=== PATIENT | female | born 1945 | race Caucasian/White ===

== ENCOUNTER 2019-09-03 10:30 | Outpatient (RCR) | payer MEDICARE, OTHER, SELFPAY ==
--- NOTE | 2019-08-20 15:58 | OTOPEVAL ---
OCCUPATIONAL THERAPY INITIAL EVALUATION 08/20/2019 Thank you for referring this patient to [facility]. Karmen will benefit from skilled OT 1x/week for 4 weeks. Please review, sign, date and return this plan of care BERTO. I agree with and certify that the following plan of care is medically necessary. Referring Physician Date Referring Provider: Kapil Nieves, MD *OT Outpatient Evaluation Therapy Assessment Status Assessment Status Assessment Status Evaluation Outpatient Past Medical History Neurological History Hx Cerebrovascular Accident (CVA) Yes Cardiovascular History Hx Hypercholesterolemia Yes Hx Hypertension Yes Respiratory History Hx Respiratory Disorders No Significant History Gastrointestinal History Hx Appendectomy Yes Hx Cholecystectomy Yes: SURGICAL CLIPS Genitourinary History Hx Genitourinary Disorders No Significant History Musculoskeletal History Hx Musculoskeletal Disorders No Significant History Hematological History Hx Hematological Disorders No Significant History Endocrine History Hx Diabetes Yes HEENT History Hx Other HEENT Disorders Yes: wear glasses, [place] Integumentary History Hx Skin Disorders No Significant History Reproductive History Hx Hysterectomy Yes Psychosocial History Hx Psychiatric Disorders No Significant History Pain History History of Any Previous or Ongoing No Significant History Instance of Pain Anesthesia History Hx Post-Op Nausea/Vomiting Yes Evaluation Information Problem Diagnosis s/p CVA Additional Evaluation Detail Pt is s/p multiple CVAs. First CVA was 13 years ago, another Jan 2019, and a third Jun 2019. Subjective Information Karmen reports that since her Query Text:As Reported By Patient/ most recent CVA affected the Family base of her brain and she keeps falling . She also states that imaging showed infarcts on both sides of her brain. Prior Level of Function Activity Level (Last 3 Months) Hand Dominance Right Activity of Daily Living Ability Independent Functional Cognition (Planning, Shopping Needs Some Help , Taking Medications) Cooking Yes Cleaning Yes Laundry Yes Driving No Home Setting Home Type House,Single Level Environmental Barriers Railing, Ascend Right,Stairs, 2-4 Living Situation With Spouse Support Available Local Family Support Mobility Assistive Devices (Used
--- NOTE | 2019-08-20 16:42 | PTOPEVAL ---
PHYSICAL THERAPY EVALUATION AND PLAN OF CARE Thank you for referring this patient to [facility]. Karmen will benefit from skilled PT. I recommend working in PT with her 1-2x/week for 4 weeks. Please review, sign, date and return this plan of care BERTO. I agree with and certify that the following plan of care is medically necessary. Referring Physician Date Attending Provider: Kapil Nieves, Evaluation Information Diagnosis CVA, cerebellar Onset 06/2019 Additional Evaluation Detail 146/; Subjective Information Karmen is here today several Query Text:As Reported By Patient/ weeks after a stroke affecting Family cerebellar and occipital region. She reports she gets dizzy at times when performing sit>stand. She states she lists to the right. Karmen has fallen several times - in one instance she was trying to close the door behind her quickly and she got twisted. She requires assistance to stand up. Pain Assessment Timing of Pain Assessment Timing of Pain Assessment Assessment Self Report Self Report Pain Level 0 Pain Score Pain Score 0: Self Report Hip Strength Bilateral Hip Flexion Strength 3+ Fair + Hip Extension Strength 3+ Fair + Hip Abduction Strength 3 Fair Knee Strength Bilateral Knee Flexion Strength 4 Good Knee Extension Strength 4 Good Balance Assessment Dillard Balance Assessment Sitting to Standing Independent w/Hands Unsupported Stance Ability Supervision- 2 minutes Sitting Unsupported, Feet on Floor Safely- 2 minutes Standing to Sitting Safely, Minimal Hand Use Transfer Ability Safely, Hand Use Unsupported Stance- Eyes Closed Supervision, 10 seconds Unsupported Stance- Feet Together Independent, 1 minute Reaching Forward while Standing Supported, Looses Balance 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
--- NOTE | 2019-08-20 16:56 | STOPEVAL ---
SPEECH THERAPY INITIAL EVALUATION: Thank you for referring this patient to [facility]. Overall, the pt. presents with mild communicative impairment. Please review, sign, date and return this plan of care BERTO. I agree with and certify that the following plan of care is medically necessary. Referring Physician Date Admitting Provider: Attending Provider: Kapil NievesMD Jose Referring Provider: ODETTE Outpatient Evaluation Start: 08/20/19 13:59 Freq: Status: Active Protocol: Document 08/20/19 14:01 [email or web address] (Rec: 08/20/19 15:05 BECHERERT [id number]) Therapy Assessment Status Assessment Status Assessment Status Evaluation Outpatient Past Medical History Neurological History Hx Cerebrovascular Accident (CVA) Yes: 3 CVA's Cardiovascular History Hx Hypercholesterolemia Yes Hx Hypertension Yes Hx Other Cardiac Disorders Yes: wearing a loop recorder ? ? how long Respiratory History Hx Respiratory Disorders No Significant History Gastrointestinal History Hx Appendectomy Yes Hx Cholecystectomy Yes: SURGICAL CLIPS Genitourinary History Hx Genitourinary Disorders No Significant History Musculoskeletal History Hx Musculoskeletal Disorders No Significant History Hematological History Hx Hematological Disorders No Significant History Endocrine History Hx Diabetes Yes HEENT History Hx Other HEENT Disorders Yes: wear glasses, [place]; bilateral hearing aids Integumentary History Hx Skin Disorders No Significant History Reproductive History Hx Hysterectomy Yes Psychosocial History Hx Psychiatric Disorders No Significant History Pain History History of Any Previous or Ongoing No Significant History Instance of Pain Anesthesia History Hx Post-Op Nausea/Vomiting Yes Evaluation Information Problem Diagnosis CVA Onset June 24, 2019 Additional Evaluation Detail With this most recent stroke, symptoms started with double vision; reports having had 2 previous strokes. The first was 13 years ago and the second in January,. Reportedly pt has no lasting effects from either. Fell at home about 1 week to 10 days ago. Reports having sore ribs but did not go to the Dr. Pt lives with spouse and 3 dogs and a cat. Enjoys reading. Used to enjoy walking but hasn
--- NOTE | 2019-09-08 09:43 | PCPTNOTE ---
Patient called & cancelled scheduled appointment this date. Does not feel like coming in this week.
--- NOTE | 2019-09-14 09:14 | PCPTNOTE ---
PHYSICAL THERAPY DISCHARGE NOTE Attending Provider: Kapil Nieves, Patient:Karmen Donnelly Date of :1945 Karmen cancelled her remaining appointments due to COVID-19 precautions. Her last attended appointment was on 09/03/2019. Her physical therapy goals have not been assessed. Her current physical therapy account will be discharged. [facility]. Please review, sign, date and return this discharge summary BERTO. I have been updated about the patient's current status and I agree with discharge from the above service at this time. Referring Physician Date
--- NOTE | 2019-09-14 09:40 | PCPTNOTE ---
Patient called & cancelled all scheduled appointment this date due to COVID-19, will reschedule after pandemic.
--- NOTE | 2019-09-16 12:58 | PCSTNOTE ---
SPEECH THERAPY DISCHARGE: Attending Provider: Kapil Nieves, Patient:Karmen Donnelly Date of :1945 Patient has been admitted to [facility] with an apparent diagnosis of CVA; therefore, she will be discharged from therapy at this time. The goals have not been reassessed. Her current outpatient speech therapy account will be discharged. Thank you for referring this patient to [facility]. Please review, sign, date and return this discharge summary BERTO. I have been updated about the patient's current status and I agree with discharge from the above service at this time. Referring Physician Date
--- NOTE | 2019-09-17 14:26 | PCOTNOTE ---
OCCUPATIONAL THERAPY DISCHARGE NOTE 09/17/2019 Attending Provider: Kapil Nieves, Patient:Karmen Donnelly Date of : 1945 Patient has been admitted to [facility] with an apparent diagnosis of CVA; therefore, she will be discharged from therapy at this time. The goals have not been reassessed. Her current outpatient occupational therapy account will be discharged. Thank you for referring this patient to [facility]. Please review, sign, date and return this discharge summary BERTO. I have been updated about the patient's current status and I agree with discharge from the above service at this time. Referring Physician Date
== END 2019-09-14 13:53 | disposition home or self-care (01) ==
LOC: ANHPT 10:30
PROVIDERS: PCP Internal Medicine; Visit Provider Internal Medicine
DX: I69.398 Other sequelae of cerebral infarction (principal); I69.322 Dysarthria following cerebral infarction
CPT/HCPCS: 92507; 92523; 97110; 97162; 97165

== ENCOUNTER 2019-09-15 10:54 | Observation (INO) | payer MEDICARE, OTHER, SELFPAY ==
[2019-09-15] VITALS (11 sets, daily range): BP systolic 147–163; BP diastolic 80–90; PULSE 68–117; RESP 16–20; TEMP 36.7–36.8; O2SAT 84–100; BMI 31.8
--- NOTE | ~2019-09-15 | CT_ITS ---
EXAMINATION: CT brain wo con DATE: 09/15/2019 11:03 INDICATION: Right-sided weakness and facial droop. TECHNIQUE: Computed tomography (CT) of the head was performed without intravenous contrast. Sagittal and coronal reconstructions were performed. The mA was adjusted according to patient size. Iterative reconstruction technique was employed. The dose-length product was 605.33 mGy-cm. COMPARISON: head CT dated 06/25/2019 FINDINGS: No acute intracranial hemorrhage, acute infarction or abnormal extra axial fluid collection. Old lacu janak infarcts in the right thalamus, bilateral basal ganglia and left frontal muller radiata. There is moderate scattered white matter hypoattenuation consistent with chronic small vessel ischemic diseas e. Symmetric prominence of the sulci and ventricles consistent with mild age-appropriate diffuse cere bral volume loss. No mass/mass effect. Mild mucosal thickening the paranasal sinuses. The orbits and mastoid air cells are normal. IMPRESSION: 1. No acute intracranial process. . 2. Old infarcts in the right thalamus, bilateral basal ganglia and left frontal muller radiata. 3. Stable appearance of age-related changes including mild diffuse volume loss and moderate scattered white matter hypoattenuation consistent with chronic small vessel ischemic disease. 4. Per stroke protocol the above findings were discussed with Dr. Coto at 11:05 AM. Reviewed, dictated and finalized at location A. IMPRESSION: 1. No acute intracranial process. . 2. Old infarcts in the right thalamus, bilateral basal ganglia and left frontal umller radiata. 3. Stable appearance of age-related changes including mild diffuse volume loss and moderate scattered white matter hypoattenuation consistent with chronic sma ll vessel ischemic disease. 4. Per stroke protocol the above findings were discussed with Dr. Coto at 11 :05 AM.
--- NOTE | ~2019-09-15 | MR_ITS ---
EXAMINATION: MR brain/brain stem wo/w con DATE: 09/15/2019 16:21 INDICATION: Right hemiparesis. TECHNIQUE: Magnetic resonance imaging (MRI) of the brain and brainstem was performed without and with 14 mL MultiHance intravenous contrast. Sequences included sagittal and axial T1-weighted FSE, axial diffusion-weighted FS EPI, axial T2*-weighted GRE, axial T2-weighted FLAIR Propeller, and axial T2-we ighted Propeller. Postcontrast sequences included axial, sagittal, and coronal T1-weighted FSE. Appar ent diffusion coefficient (ADC) maps were created. COMPARISON: Brain MRI 06/26/2019, 01/26/2019 FINDINGS: There are scattered areas of nonspecific increased T2-weighted signal intensity in the cere bral white matter and tavon. There are old infarcts in the left midbrain, right thalamus, bilateral ba gibran ganglia, left internal capsule, and left frontal lobe muller radiata. There is no intracranial he morrhage, acute infarction, or abnormal intracranial mass lesion. The ventricles are normal in size. The orbits are normal. There is mild mucosal thickening in the paranasal sinuses. The mastoid air melony ls are normal. IMPRESSION: 1. Multiple old infarcts in the brain. 2. Stable moderate nonspecific cerebral white matter disease and pontine disease, which likely repres ents chronic small vessel ischemic disease. Reviewed, dictated and finalized at location A. IMPRESSION: 1. Multiple old infarcts in the brain. 2. Stable moderate nonspecific cerebral white matter disease and pontine diseas e, which likely represents chronic small vessel ischemic disease.
--- NOTE | ~2019-09-15 | XR_ITS ---
EXAMINATION: XR chest 1V 09/15/2019 11:43 INDICATION: Dizziness. CVA. PROCEDURE: AP view of the chest COMPARISON: 06/25/2019 FINDINGS: The lungs are clear. The cardiomediastinal silhouette is within normal limits. There are no pleural effusions. There is no pneumothorax suspected. There are degenerative changes of the wili ulders. IMPRESSION: 1: NO ACUTE CARDIOPULMONARY DISEASE. Reviewed, dictated and finalized at location A.
--- NOTE | ~2019-09-15 | CT_ITS ---
EXAMINATION: CTA BRAIN/CAROTID DATE: 09/15/2019 11:41 INDICATION: Stroke presenting with right-sided hemiparesis, right facial droop and dizziness TECHNIQUE: Computed tomographic angiography (CTA) of the head and neck was performed with 100 mL Omni paque-350 intravenous contrast. Multiplanar reconstructions and maximum intensity projection 3D-recon structions of the carotid arteries and of the intracranial arteries were created by the technologist on a separate workstation. Automated exposure control and iterative reconstruction technique were em ployed.The dose-length product was 961.93 mGy-cm. COMPARISON: Head CT dated 09/15/2019 and brain MR dated 06/26/2019 FINDINGS: Carotid arteries: There is small focus of atherosclerotic plaque with 0 % stenosis of the right carotid bulb relative t o normal distal artery lumen diameter (NASCET criteria). There is 0% stenosis of the left carotid bul b relative to normal distal artery lumen diameter. Visualized aortic arch is normal in caliber with n o dissection. Likely benign 7 mm rim calcified right thyroid nodule. Cervical soft tissues are otherw ise unremarkable. Visualized airway and apices of the lungs are clear. Intracranial arteries Vertebral arteries are codominant. Scattered atherosclerotic plaque without hemodynamically significa nt stenosis at the bilateral carotid siphons. No significant hemodynamic stenosis in the vertebral or basilar arteries. There are no aneurysms identified. Both A1 and P1 segments are patent. Extensive atherosclerotic disease with scattered mild to moderate stenosis at multiple locations along the bila teral anterior, middle and posterior cerebral artery vascular distributions. Peripheral cerebral meena rial arborization appears symmetric. No abnormally enhancing lesions identified. Old lacunar infarcts in the right thalamus, bilateral basal ganglia and left frontal muller radiata. IMPRESSION: 1. Small amount of plaque with 0% stenosis of the right carotid bulb relative to normal distal artery lumen diameter (NASCET criteria). 2. 0% stenosis of the left carotid bulb relative to normal distal artery lumen diameter. 3. Extensive atherosclerotic disease in the intracranial arteries with scattered mild to moderate thierry nosis in the bilateral anterior, middle and posterior cerebral artery vascular distributions but with symmetric peripheral cerebral artery arborization. 4. Small old lacunar infarcts in the right thalamus, bilateral basal ganglia and left frontal muller radiata. Reviewed, dictated and finalized at location A. IMPRESSION: 1. Small amount of plaque with 0% stenosis of the right carotid bulb relative t o normal distal artery lumen diameter (NASCET criteria). 2. 0% stenosis of the left carotid bulb relative to normal distal artery lumen diameter. 3. Extensive atherosclerotic disease in the intracranial arteries with scattere d mild to moderate stenosis in the bilateral anterior, middle and posterior cer ebral artery vascular distributions but with symmetric peripheral cerebral meena ry arborization. 4. Small old lacunar infarcts in the right thalamus, bilateral basal ganglia an d left frontal muller radiata.
--- NOTE | 2019-09-15 10:55 | ECG_ITS ---
Measurements Intervals [place] Rate: 87 P: 52 [place]: 199 QRS: 25 QRSD: 81 T: 87 QT: 364 QTc: 439 Interpretive Statements SINUS RHYTHM NONSPECIFIC ST & T-WAVE ABNORMALITY- LATERAL LEADS BASELINE ARTIFACT- I, II, III, AVR, AVL, AVF, V1-V6 BORDERLINE ECG Electronically Signed On 09-15-2019 12:39:50 CDT by Andrea Madsen D.O.
--- NOTE | 2019-09-15 11:05 | ED.NEUROSD ---
HPI - Neuro Symptoms/Deficit General Chief Complaint: Suspected CVA Stated Complaint: cva Time Seen by Provider: 09/15/19 11:05 Source: patient and family Mode of arrival: ambulatory Limitations: no limitations History of Present Illness HPI Narrative: A 74 y/o female presents to the ED with c/o possible CVA. Per patient's family, the patient has a PMHx of CVA and last had a CVA on 06/25/19. She does not have any residual effects from her previous CVA's. The family notes that today they were going to the grocery store and the patient decided to stay in the car because she was scared of the viral outbreak. The patient's then called his while in the store and she told him that she had trouble answering the phone call and her hand felt funny. The adds that the patient's speech was slurred and she was confused. When the returned to the car, he noticed she had right sided facial droop, so he decided to bring her to the ED. The patient was fine prior to the going into the store today at 1030. She takes Plavix and Asprin daily and last took her prescriptions this morning. Onset (ago): minute(s) (30) Last Observed Normal: 10:30 Timing confirmed by: spouse Location: speech and right face History of same: Yes Severity: similar to previous episodes On Anticoagulants: Yes Associated symptoms: confusion and other (slurred speech, right facial droop, hand feels funny ) Related Data Home Medications Medication Instructions Recorded Confirmed Januvia 50 mg PO DAILY 06/25/19 06/25/19 amlodipine 10 mg PO DAILY 06/25/19 06/25/19 aspirin 81 mg PO DAILY 06/25/19 06/25/19 clopidogrel 75 mg PO DAILY 06/25/19 06/25/19 glipizide 5 mg PO DAILY 06/25/19 06/25/19 losartan 100 mg PO DAILY 06/25/19 06/25/19 rosuvastatin 10 mg PO DAILY 06/25/19 06/25/19 Allergies Allergy/AdvReac Type Severity Reaction Status Date / Time metformin AdvReac Severe DIARRHEA Verified 09/15/19 11:14 Review of Systems Review of Systems: All systems reviewed & are unremarkable except as noted in HPI and below Musculoskeletal: Musculoskeletal: Reports other (hand feels funny ) Neurologic: Reports confusion and Reports other (slurred speech, right facial droop) [facility] Past Medical History Medical History (Updated 09/15/19 @ 14:05 by Amarjit Coto DO) Acute CVA (cerebrovascular accident) CVA (cerebral vascular accident) DM2 (diabetes mellitus, type 2) Dyslipidemia Hypertension Left basal ganglia embolic stroke Right thalamic stroke Sinus headache Surgical History Surgical History H/O cervical spine surgery Nerve release History of appendectomy History of hysterectomy including cervix Hx of cholecystectomy Family History Family History Father Diabetes mellitus Acute myocardial infarction Cerebrovascular accident Hypertension Mother of unknown cause History of blood clots Social History Social History Smoking status: Never smoker Alcohol intake: never Substance use: never Gender identity (if verbalized by the patient): Female Spiritual care concerns: No Agree to blood products: Yes Exam Narrative: Exam Narrative: APPEARANCE: No acute distress, nontoxic, resting in bed HEENT: Normocephalic, atraumatic, OMM, TMs clear bilaterally EYES: PERRL, EOMI NECK: Supple, nontender, full range of motion without pain, no meningismus RESPIRATORY: No respiratory distress, clear to auscultation bilaterally with no rhonchi wheezing or rales CARDIOVASCULAR: RRR s murmur ABDOMINAL: Soft, nontender, nondistended MUSCULOSKELETAL: Moves all extremities. No clubbing, cyanosis or edema. NEURO: A and O ?1, speech slurred with mild aphasia, muscle strength 4 out of 5 in the right upper extremity 5 out of 5 in the right lower extremity and 5 out of 5 in the left upper and lower e
[2019-09-15 11:22] LABS: Basophils Percent Auto 0.5 % (0.2-1.2); Eosinophils Absolute Auto 0.2 K/mm3 (0-0.3); Eosinophils Percent Auto 2.6 % (0-4.4); Hematocrit 42.7 % (37.0-47.0); Hemoglobin 14.1 g/dL (12.0-15.0); Immature Granulocyte Absolute 0.02 K/mm3 (0.00-0.031); Immature Granulocyte Percent A 0.3 % (0-0.5); Lymphocytes Absolute Auto 1.88 K/mm3 (0.9-3.2); Lymphocytes Percent Auto 23.7 % (18.3-44.2); Mean Corpuscular Hemoglobin 29.4 pg (26-34); Mean Platelet Volume 10.9 fl (7.4-10.4); Monocytes Absolute Auto 0.7 K/mm3 (0.1-0.6); Monocytes Percent Auto 9.3 % (2.6-8.5); Neutrophils Percent Auto 63.6 % (45.5-73.1); Platelet Count Result 218 k/mm3 (150-375); Red Cell Distribution Width 12.3 % (11.5-14.5); White Blood Count 7.9 K/mm3 (4.5-10.0)
[2019-09-15 11:33] LABS: INR 0.9; Partial Thromboplastin Time 22.4 SECONDS (22.3-36.8); Prothrombin Time 11.3 Seconds (11.1-14.7)
[2019-09-15 11:57] LABS: Glucose Point of Care 121 (65-105)
[2019-09-15 12:13] LABS: Blood Urea Nitrogen 22 mg/dL (7-17); Calcium 8.9 mg/dL (8.4-10.2); Carbon Dioxide 29 mmol/L (22-30); Chloride 101 mmol/L (98-107); Estimated CRCL calculation 39 ml/min; Estimated Glomerular Filt Rate 54; Glucose 129 mg/dL (65-105); Potassium 4.4 mmol/L (3.4-5.0); Sodium 136 mmol/L (137-145)
[2019-09-15 12:25] LABS: Troponin I < 0.012 ng/mL (0.000-0.034)
--- NOTE | 2019-09-15 14:00 | PM.IMHP ---
H&P: HPI History of Present Illness Chief complaint: Right-sided weakness and slurred speech. Narrative: Karmen Donnelly is a 74-year-old female with history of stroke, type 2 diabetes mellitus, and hypertension who presented to the emergency department earlier today for evaluation of right-sided weakness and slurred speech. She has a history of several strokes, more recently suffering from an acute infarct in the left mid brain June 26, 2019. Echocardiogram and carotid Doppler ultrasounds were unrevealing, and it was thought that perhaps she was having silent paroxysmal atrial fibrillation and a loop recorder was placed per Dr. Drew on June 30. She denied have any significant residual deficits from that stroke. Today, she began complaining of right-sided weakness and notes slurred speech. At the time my evaluation, her speech is intermittently garbled and she is having difficulties verbalizing what she wants to say. I am not certain if she is confused or is simply suffering from expressive aphasia, as she cannot really explain to me what she is feeling nor can she answer orientation questions appropriately. Currently, visitors are not allowed the hospital and have been unable to get a hold of her via phone for additional information, unfortunately. When when asked direct questions, she is able to nod and/or shake her head. She does indicate that she had some slight right-sided facial droop but denies to me having right-sided weakness. She states compliance with her home medications. She denies vertigo, diplopia, current focal weakness or paresthesias. She has not experienced fluttering or racing heart. Review of Systems Review of Systems: Narrative: Twelve systems were reviewed with pertinent positives and negatives as per HPI. The accuracy of this review of systems is questionable, given the patient's expressive and possible receptive aphasia. Except as documented, all other systems were reviewed and are negative. [facility] Past Medical History Medical History (Updated 09/15/19 @ 16:33 by Joann Mccarthy PA-C) CVA (cerebral vascular accident) : Brain MRI June 2019 showed acute infarct in the left midbrain and old infarcts involving the right thalamus, bilateral basal ganglia, and left frontal lobe muller radiata as well as unchanged moderate nonspecific cerebral white matter disease and pontine disease, which likely represents chronic small vessel ischemic disease. : Carotid Doppler ultrasounds showed < 50% stenosis bilaterally. : Echocardiogram in January 2018 showed normal left ventricular systolic function with an EF of 65-70%. There was no evidence of intracardiac shunt at the atrial level with bubble study. Dyslipidemia Hypertension Type 2 diabetes mellitus :Hemoglobin A1c was 8.3% in January 2019. Surgical History Surgical History (Updated 09/15/19 @ 16:18 by Joann Mccarthy PA-C) History of appendectomy History of cervical spinal surgery History of cholecystectomy History of hysterectomy Family History Family History Father Diabetes mellitus Acute myocardial infarction Cerebrovascular accident Hypertension Mother of unknown cause History of blood clots Social History Social History (Updated 09/15/19 @ 16:24 by Joann Mccarthy PA-C) Social History: The patient lives in [place] with her . Her , Michael, as her surrogate decision maker and she is listed as a full code. She is a lifelong nonsmoker. No alcohol or drug abuse documented. Spiritual care concerns: No Agree to blood products: Yes Meds Home Medications and Allergies Home Medications Medication Instructions Recorded Confirmed Type Januvia 50 mg PO DAILY 06/25/19 09/15/19 History amlodipine 10 mg PO DAILY 06/25/19 09/15/19 History aspirin 81 mg PO DAILY 06/25/19 09/15/19 History clopidogrel 75 mg PO DAILY 06/25/19
--- NOTE | 2019-09-15 14:17 | ADMGEN ---
This patient, Karmen Donnelly, was admitted to [facility] Room 319-01. Patient/family oriented to hospital policies and general routines including ID bracelet, bed and alarms, visiting hours, pain management, procedures, bathroom and other care routines, personal items, smoking policy, room service/diet, and visiting hours. Valuables list has been completed. Information on how to activate the Rapid Response Team has been discussed. Patient/Family are encouraged to report perceived risks to care and to ask questions if they do not understand what they are told or what they should do.
[2019-09-15] MEDS: INSULIN ASPART (*BKC) 100 UNITS/ML SUB-Q (17:05)
[2019-09-15 17:15] LABS: Glucose Point of Care 233 (65-105)
[2019-09-15 21:38] LABS: Glucose Point of Care 176 (65-105)
[2019-09-16] VITALS: PULSE 94
[2019-09-16 04:00] VITALS: PULSE 115
[2019-09-16 06:00] VITALS: BP 150/80; PULSE 87; RESP 18; TEMP 36.6; O2SAT 97
[2019-09-16 06:20] LABS: Basophils Percent Auto 0.2 % (0.2-1.2); Eosinophils Percent Auto 0.4 % (0-4.4); Hematocrit 39.7 % (37.0-47.0); Hemoglobin 13.2 g/dL (12.0-15.0); Immature Granulocyte Absolute 0.04 K/mm3 (0.00-0.031); Immature Granulocyte Percent A 0.5 % (0-0.5); Lymphocytes Percent Auto 16.7 % (18.3-44.2); Mean Corpuscular HGB Conc 33.2 g/dl (32-36); Mean Corpuscular Hemoglobin 29.3 pg (26-34); Mean Platelet Volume 10.3 fl (7.4-10.4); Monocytes Absolute Auto 0.7 K/mm3 (0.1-0.6); Monocytes Percent Auto 8.5 % (2.6-8.5); Neutrophils Absolute Auto 6.2 K/mm3 (1.3-6.7); Neutrophils Percent Auto 73.7 % (45.5-73.1); Platelet Count Result 234 k/mm3 (150-375); Red Blood Count 4.51 M/mm3 (4.2-5.4); White Blood Count 8.4 K/mm3 (4.5-10.0)
[2019-09-16 06:36] LABS: Blood Urea Nitrogen 19 mg/dL (7-17); Carbon Dioxide 30 mmol/L (22-30); Chloride 101 mmol/L (98-107); Estimated CRCL calculation 48 ml/min; Estimated Glomerular Filt Rate > 60; Glucose 131 mg/dL (65-105); Potassium 4.3 mmol/L (3.4-5.0); Sodium 134 mmol/L (137-145)
[2019-09-16 06:44] LABS: Alanine Aminotransferase 15 U/L (4-35); Albumin Level 3.6 g/dL (3.5-5.1); Alkaline Phosphatase 70 U/L (38-126); Aspartate Amino Transferase 21 U/L (14-36); Bilirubin,Total 0.7 mg/dL (0.2-1.3)
[2019-09-16 08:00] VITALS: PULSE 87; PULSE 92; RESP 18; O2SAT 97
[2019-09-16] MEDS: LOSARTAN POTASSIUM 100 MG TABLET PO (08:30)
[2019-09-16] MEDS: AMLODIPINE BESYLATE 5 MG TABLET 10 MG PO (08:30)
[2019-09-16 08:32] LABS: Glucose Point of Care 108 (65-105)
[2019-09-16] MEDS: ESCITALOPRAM OXALATE 5 MG TABLET PO (08:34)
[2019-09-16] MEDS: ASPIRIN 81 MG ENTERIC TABLET PO (08:34)
[2019-09-16] MEDS: ROSUVASTATIN 10 MG TABLET PO (08:35)
[2019-09-16] MEDS: glipiZIDE XL 5 MG TABCR PO (08:35)
[2019-09-16] MEDS: CLOPIDOGREL BISULFATE 75 MG TABLET PO (08:35)
--- NOTE | 2019-09-16 09:43 | PCSTNOTE ---
Please refer to the Bedside Swallow Evaluation in the EMR.
[2019-09-16] MEDS: ONDANSETRON INJ 4 MG/2 ML VIAL IV PUSH (10:02)
--- NOTE | 2019-09-16 11:18 | CONS_ITS ---
DATE OF CONSULTATION: 09/15/2019 HISTORY OF PRESENT ILLNESS: This 74-year-old right-handed female has been admitted to [facility] through the emergency room for the complaints of right-sided weakness with dysarthria. In addition, the history of underlyin. Previous stroke. 2. Type 2 diabetes mellitus. 3. Hypertension. 4. Dyslipidemia. As per the information available, the patient has had several stroke, more recently suffering from an acute infarct in the left mid brain on 06/26/2019. At that time, echocardiogram and carotid studies were unrevealing. It was attributed to her strokes, silent paroxysmal atrial fibrillation, and a loop recorder was placed as per Dr. Drew on 06/30/2019. She had no residual effect from the stroke, but started complaining of right-sided weakness and noted to have slurred speech by the on the day of admission today. By the time, she was seen by the hospitalist, her speech was garbled and she was having difficulty verbalizing. She was able to nod or shake her head. She was noted to have slight right-sided facial droop and right-sided weakness. As mentioned above, she has had the stroke in the past in June of 2019 with documentation of acute infarct in the left midbrain and old infarct in the right thalamus, bilateral basal ganglia, left frontal lobe muller radiata and no significant white matter disease. Carotid study at the time were less than 50% stenosis bilaterally. Echocardiogram was consistent with normal left ventricle systolic function with ejection fraction of 65% to 70%, but there was no evidence of intracardiac shunting at the level of the atrium with a bubble study. PAST MEDICAL HISTORY: Obviously, she had the dyslipidemia, hypertension, type 2 diabetes mellitus, and her hemoglobin A1c was 8.3 in January of 2019. PAST SURGICAL HISTORY: In the past, the patient has gone appendectomy, cervical spine surgery, cholecystectomy, hysterectomy. MEDICATIONS: At the time of admission, this time she was takin. Januvia 50 mg daily. 2. Amlodipine 10 mg daily. 3. Aspirin 81 mg daily. 4. Clopidogrel 75 mg daily. 5. Glipizide 5 mg daily. 6. Losartan 100 mg daily. 7. Rosuvastatin 10 mg daily. 8. Escitalopram 5 mg daily. 9. She is off the metformin because of the adverse reaction. PHYSICAL EXAMINATION: VITAL SIGNS: Evaluation at this time revealed her to be afebrile with pulse of 89, respirations 16, blood pressure 156/81 with pulse ox 100%, respirations 16, blood pressure 147/87 repeat. GENERAL: Examination revealed her to be awake, alert, cooperative, in no obvious acute distress. HEENT: Head normocephalic with no cranial bruit. Ear, nose, throat examination normal. NECK: Supple with no cervical bruit. No thyromegaly. No lymphadenopathy. HEART: Regular with no murmur. LUNGS: Clear to auscultation. ABDOMEN: Soft with no organomegaly. NEUROLOGICAL: She is awake, alert, has difficulties of providing all the information though she try to follow as much as possible. She was noted to have drift of the right upper extremity, but otherwise deep tendon reflexes were either symmetrical and plantar response was upgoing. LABORATORY DATA: Evaluation up until now included a normal CBC with WBC 7.9, hemoglobin 14.1, platelet count 218. Basic metabolic panel normal, except a glucose of 129. Troponin less than 0.012. CT of the head documented the old infarct in the right thalamus, both basal ganglia and left frontal muller radiata with mild diffuse volume loss. Scattered white matter disease. Chest x-ray was negative. Head and neck CTA was done, which revealed 0% stenosis of the right carotid bulb, 0% of the left carotid bulb. Extensive atherosclerotic disease in the intracranial arteries with [id number] stenosis o
--- NOTE | 2019-09-16 11:58 | PM.IMPN ---
Progress Note: A&P Assessment and Plan (1) Acute CVA (cerebrovascular accident): Code(s): I63.9 - Cerebral infarction, unspecified Status: Acute Assessment and Plan: Despite being on both aspirin and Plavix since stroke in June, it appears she has had yet another stroke. Loop recorder placed in June to evaluate possible silent paroxysmal atrial fibrillation, which will be interrogated. May be beneficial to start anticoagulation given repeated strokes. 09/16/19 11:58 Patient is 74-year-old female with previous history of stroke as well as TIA and silent atrial fibrillation had been seen by station cashier and loop recorder was placed in June 2019, patient was clinically stable until yesterday afternoon while she was with her and developed slurred speech confused and difficulty with upper extremities, patient was brought to the emergency department for further evaluation patient had MRI of the brain showed multiple old infarcts there is no acute injury, her symptoms have resolved this morning she has a fluent speech and denies any upper or lower extremity weakness, there is a concern the patient has a silent atrial fibrillation patient was seen by station cashier and the loop recorder was placed which may need interrogation for further evaluation, currently patient is on Plavix and aspirin patient is seen by neurologist recommending the patient may need anticoagulation once patient is seen by station cashier and had loop recorder nterrogated. Will have PT OT evaluate the patient (2) Type 2 diabetes mellitus: Code(s): E11.9 - Type 2 diabetes mellitus without complications Status: Acute Assessment and Plan: Hemoglobin A1c was 8.3% in January 2019. Continue glipizide and Januvia. Initiate sliding scale insulin, Accu-Cheks, and hypoglycemic protocol. (3) Hypertension: Code(s): I10 - Essential (primary) hypertension Status: Chronic Assessment and Plan: Blood pressures were reviewed and they are not at goal, with have 163/90 in the emergency department. Will continue antihypertensives and monitor closely. (4) Dyslipidemia: Code(s): E78.5 - Hyperlipidemia, unspecified Status: Chronic Assessment and Plan: Continue statin. Time Spent With Patient Time with patient: 15 - 25 minutes Subjective Date/time seen: 09/16/19 11:58 Patient is 74-year-old female with previous history of stroke as well as TIA and silent atrial fibrillation had been seen by station cashier and loop recorder was placed in June 2019, patient was clinically stable until yesterday afternoon while she was with her and developed slurred speech confused and difficulty with upper extremities, patient was brought to the emergency department for further evaluation patient had MRI of the brain showed multiple old infarcts there is no acute injury, her symptoms have resolved this morning she has a fluent speech and denies any upper or lower extremity weakness, there is a concern the patient has a silent atrial fibrillation patient was seen by station cashier and the loop recorder was placed which may need interrogation for further evaluation, currently patient is on Plavix and aspirin patient is seen by neurologist recommending the patient may need anticoagulation once patient is seen by station cashier and had loop recorder nterrogated. Will have PT OT evaluate the patient Review of Systems Review of Systems: All systems reviewed & are unremarkable except as noted in HPI and below Exam Const: General: comfortable and no acute distress HENMT: General nose exam: Normal nares present Mouth: Yes moist mucous membranes Eyes: General: appearance normal, both eyes and all related structures Sclera: sclerae normal Neck: Neck: supple Resp: Effort & Inspection: normal respiratory effort Auscultation: clear to auscultation bilaterally Cardio: Rate: regular rate Rhythm: regular
[2019-09-16 12:00] VITALS: PULSE 85
[2019-09-16 12:30] LABS: Glucose Point of Care 177 (65-105)
[2019-09-16 14:00] VITALS: BP 140/73; PULSE 95; RESP 18; TEMP 37.1; O2SAT 95
--- NOTE | 2019-09-16 14:27 | PCSTNOTE ---
The patient treatment was not able to be completed on 09/16/19 due to patient refusal this afternoon due to not feeling well. Will plan to continue treatment per plan of care for Communication Evaluation
--- NOTE | 2019-09-16 14:50 | PM.DS ---
DS: Diagnosis Admitting Diagnosis Admitting Diagnosis: Cerebral infarction, unspecified Discharge Diagnosis (1) Acute CVA (cerebrovascular accident): Code(s): I63.9 - Cerebral infarction, unspecified Status: Acute Assessment and Plan: Despite being on both aspirin and Plavix since stroke in June, it appears she has had yet another stroke. Loop recorder placed in June to evaluate possible silent paroxysmal atrial fibrillation, which will be interrogated. May be beneficial to start anticoagulation given repeated strokes. 09/16/19 11:58 Patient is 74-year-old female with previous history of stroke as well as TIA and silent atrial fibrillation had been seen by banking services clerk and loop recorder was placed in June 2019, patient was clinically stable until yesterday afternoon while she was with her and developed slurred speech confused and difficulty with upper extremities, patient was brought to the emergency department for further evaluation patient had MRI of the brain showed multiple old infarcts there is no acute injury, her symptoms have resolved this morning she has a fluent speech and denies any upper or lower extremity weakness, there is a concern the patient has a silent atrial fibrillation patient was seen by banking services clerk and the loop recorder was placed which may need interrogation for further evaluation, currently patient is on Plavix and aspirin patient is seen by neurologist recommending the patient may need anticoagulation once patient is seen by banking services clerk and had loop recorder nterrogated. Will have PT OT evaluate the patient (2) Type 2 diabetes mellitus: Code(s): E11.9 - Type 2 diabetes mellitus without complications Status: Acute Assessment and Plan: Hemoglobin A1c was 8.3% in January 2019. Continue glipizide and Januvia. Initiate sliding scale insulin, Accu-Cheks, and hypoglycemic protocol. (3) Hypertension: Code(s): I10 - Essential (primary) hypertension Status: Chronic Assessment and Plan: Blood pressures were reviewed and they are not at goal, with have 163/90 in the emergency department. Will continue antihypertensives and monitor closely. (4) Dyslipidemia: Code(s): E78.5 - Hyperlipidemia, unspecified Status: Chronic Assessment and Plan: Continue statin. DS: Summary Hospital Course Reason for hospitalization: Chief complaint: Right-sided weakness and slurred speech. Narrative: Karmen Donnelly is a 74-year-old female with history of stroke, type 2 diabetes mellitus, and hypertension who presented to the emergency department earlier today for evaluation of right-sided weakness and slurred speech. She has a history of several strokes, more recently suffering from an acute infarct in the left mid brain June 26, 2019. Echocardiogram and carotid Doppler ultrasounds were unrevealing, and it was thought that perhaps she was having silent paroxysmal atrial fibrillation and a loop recorder was placed per Dr. Drew on June 30. She denied have any significant residual deficits from that stroke. Today, she began complaining of right-sided weakness and notes slurred speech. At the time my evaluation, her speech is intermittently garbled and she is having difficulties verbalizing what she wants to say. I am not certain if she is confused or is simply suffering from expressive aphasia, as she cannot really explain to me what she is feeling nor can she answer orientation questions appropriately. Currently, visitors are not allowed the hospital and have been unable to get a hold of her via phone for additional information, unfortunately. When when asked direct questions, she is able to nod and/or shake her head. She does indicate that she had some slight right-sided facial droop but denies to me having right-sided weakness. She states compliance with her home medications. She denies vertigo, diplopia,
[2019-09-16 16:46] LABS: Glucose Point of Care 173 (65-105)
== END 2019-09-16 17:50 | disposition home or self-care (01) ==
LOC: ANHED 13:32 → ANH3MEDSUR 14:05
PROVIDERS: Physician Assistant; Admitting Provider Internal Medicine; Emergency Provider Emergency Medicine; PCP Internal Medicine; Visit Provider Family Medicine
DX: I63.9 Cerebral infarction, unspecified (principal); G83.21 Monoplegia of upper limb affecting right dominant side; R47.81 Slurred speech; E11.9 Type 2 diabetes mellitus without complications; I10 Essential (primary) hypertension; E78.5 Hyperlipidemia, unspecified; Z79.02 Long term (current) use of antithrombotics/antiplatelets; Z79.82 Long term (current) use of aspirin; Z79.899 Other long term (current) drug therapy; Z86.73 Personal history of transient ischemic attack (TIA), and cerebral infarction without residual deficits
CPT/HCPCS: 36415; 70450; 70496; 70498; 70553; 71045; 80048; 80076; 82948; 84484; 85025; 85610; 85730; 92610; 93005; 96374; 97161; 97165; 99285; A9270; A9577; G0378; J1815; J2405; Q9967

== ENCOUNTER 2022-11-29 12:25 | Inpatient (IN) | payer MEDICARE, OTHER, SELFPAY ==
[2022-11-29] VITALS (8 sets, daily range): BP systolic 144–160; BP diastolic 73–101; PULSE 97–135; RESP 19–22; TEMP 36.1–37.4; O2SAT 96–99; BMI 30.1
--- NOTE | ~2022-11-29 | XR_ITS ---
XR chest 1V portable DATE: 11/29/2022 15:29 INDICATION: Fall. Nausea and vomiting. TECHNIQUE: Portable upright AP chest on 11/29/2022 at 1518 hours COMPARISON: 09/11/2019 AP chest FINDINGS: last ironer device overlies the medial left lower chest/upper abdomen. Heart size appears within normal range. Is aortic calcification. No hilar or mediastinal enlargement. There is mild to moderate elevation of the left leaf of the diaphragm. Minimal atelectasis is suggest ed at the left lung base. The lungs otherwise appear clear. No pleural effusion or pulmonary vascular congestion or pneumothorax is evident. Osteopenia. Status post lower anterior cervical spine surgical fusion. IMPRESSION: Moderate moderate elevation left leaf of diaphragm and minimal atelectasis at left lung b ase Reviewed, dictated and finalized at location L. IMPRESSION: Moderate moderate elevation left leaf of diaphragm and minimal atel ectasis at left lung base
--- NOTE | ~2022-11-29 | XR_ITS ---
XR finger 2nd RT min 2V DATE: 11/29/2022 15:28 INDICATION: Fall. Second digit pain at proximal interphalangeal joint TECHNIQUE: 3 views COMPARISON: None FINDINGS: Possible dorsal soft tissue laceration with suggestion of minimal subcutaneous emphysema of the dorsal soft tissues near the proximal interphalangeal joint. There is osteoarthritic change at the proximal and distal interphalangeal joints of the second digit. Osteophytic changes also noted at the first carpometacarpal joint. Osteopenia No fracture or dislocation, periosteal reaction or bone destruction of the second digit is evident. IMPRESSION: Osteopenia Polyarticular osteoarthritis Suggestion of a small laceration and possible subtle minimal subcutaneous emphysema of the dorsum of the second digit over the proximal interphalangeal area; no radiopaque foreign body Reviewed, dictated and finalized at location L. IMPRESSION: Osteopenia Polyarticular osteoarthritis Suggestion of a small laceration and possible subtle minimal subcutaneous emphy sema of the dorsum of the second digit over the proximal interphalangeal area; no radiopaque foreign body
--- NOTE | ~2022-11-29 | CT_ITS ---
Noncontrast CT scan of the cervical spine Technique: Multiple contiguous axial [address] images of the cervical spine were obtained and rec onstructed in 2D sagittal and coronal planes on the acquisition scanner. Dose reduction technique was used on this scan by utilizing automated exposure control, adjustment of the mA and/or kV according to patient size. Clinical History: Pain Findings: No fractures or dislocations. There is anterior fusion across the C5-C6 disc space. There is advanced degenerative disc narrowing at C6-C7. Remaining disc spaces are preserved. There is uncov ertebral degenerative change at C6-C7. There is probable right neural foraminal narrowing at C4-C5 wi th right facet arthropathy. Probable minimal bilateral neural foraminal narrowing at C5-C6 and C6-C7. No prevertebral soft tissue swelling. Impression: No fracture or subluxation of the cervical spine. Anterior fusion from C5 to C6. Degenerative changes, as above. Reviewed, dictated and finalized at [facility]. Impression: No fracture or subluxation of the cervical spine. Anterior fusion from C5 to C6. Degenerative changes, as above.
--- NOTE | ~2022-11-29 | CT_ITS ---
CT head without contrast Indication: COMPARISON: 09/15/2019 Technique: Serial scans were obtained through the brain without the administration of contrast. Dose reduction technique was used on this scan by utilizing automated exposure control and iterative recon struction technique. The dose-length product (DLP) was 605.33 mGy-cm. Findings: There is no evidence of intracranial hemorrhage, mass lesion, or acute infarct. The ventri cles and subarachnoid spaces are dilated, consistent with moderate atrophy. Low attenuation regions are seen within the periventricular white matter bilaterally, likely representing changes from chroni c microvascular ischemic disease. There is no evidence of edema, mass effect or midline shift. The visualized paranasal sinuses and mastoid air cells are clear. Impression: No intracranial hemorrhage, mass, or acute infarct. Atrophy and chronic white matter changes, as above. Reviewed, dictated and finalized at location . Impression: No intracranial hemorrhage, mass, or acute infarct. Atrophy and chronic white matter changes, as above.
--- NOTE | 2022-11-29 12:53 | PC.NURSE ---
C collar applied per spouse report of falling and htiting head. Pt does not endorse neck pain.
[2022-11-29 13:33] LABS: Basophils Percent Auto 0.3 % (0.2-1.2); Eosinophils Absolute Auto 0.1 K/mm3 (0-0.3); Eosinophils Percent Auto 1.8 % (0-4.4); Hematocrit 41.7 % (37.0-47.0); Hemoglobin 14.1 g/dL (12.0-15.0); Immature Granulocyte Absolute 0.07 K/mm3 (0.00-0.031); Immature Granulocyte Percent A 0.9 % (0-0.5); Lymphocytes Absolute Auto 1.34 K/mm3 (0.9-3.2); Lymphocytes Percent Auto 17.1 % (18.3-44.2); Mean Corpuscular HGB Conc 33.8 g/dl (32-36); Mean Corpuscular Hemoglobin 30.9 pg (26-34); Mean Corpuscular Volume 91.4 fl (80-100); Mean Platelet Volume 10.2 fl (7.4-10.4); Monocytes Absolute Auto 0.7 K/mm3 (0.1-0.6); Monocytes Percent Auto 8.8 % (2.6-8.5); Neutrophils Absolute Auto 5.6 K/mm3 (1.3-6.7); Neutrophils Percent Auto 71.1 % (45.5-73.1); Platelet Count Result 219 k/mm3 (150-375); Red Blood Count 4.56 M/mm3 (4.2-5.4); Red Cell Distribution Width 13.2 % (11.5-14.5); White Blood Count 7.8 K/mm3 (4.5-10.0)
[2022-11-29 13:49] LABS: Alanine Aminotransferase 38 U/L (6-35); Albumin Level 4.1 g/dL (3.5-5.1); Alkaline Phosphatase 65 U/L (38-126); Anion Gap 4 mmol/L (8-16); Aspartate Amino Transferase 34 U/L (14-36); Bilirubin,Total 0.5 mg/dL (0.2-1.3); Blood Urea Nitrogen 17 mg/dL (7-17); Calcium 8.6 mg/dL (8.4-10.2); Carbon Dioxide 31 mmol/L (22-30); Chloride 102 mmol/L (98-107); Estimated CRCL calculation 51 ml/min; Estimated Glomerular Filt Rate > 60; Glucose 123 mg/dL (65-110); Potassium 3.8 mmol/L (3.4-5.0); Sodium 137 mmol/L (137-145)
[2022-11-29 13:50] LABS: INR 0.8; Prothrombin Time 11.8 Seconds (11.1-14.7)
--- NOTE | 2022-11-29 13:57 | ED.FALL ---
HPI - Fall General Chief Complaint: Fall Stated Complaint: FALL/ HEADACHE Time Seen by Provider: 11/29/22 13:02 Source: patient History of Present Illness HPI Narrative: 77 years old white female came from home by ambulance because of a fall. Patient missed stepped going up to the garage and fell backward. was infront of her at that time and heard a thud, found her laying down on the ground awake, denying symptoms. Patient have history of dementia and usually uses a cane during walking.. Patient does not know exactly what happened she keeps telling me as my Related Data Home Medications Medication Instructions Recorded Confirmed amlodipine 10 mg tablet 10 mg PO DAILY 06/25/19 09/15/19 aspirin 81 mg tablet,delayed 81 mg PO DAILY 06/25/19 09/15/19 release clopidogrel 75 mg tablet 75 mg PO DAILY 06/25/19 09/15/19 glipizide 5 mg tablet, extended 1 mg PO DAILY 06/25/19 09/15/19 release 24 hr losartan 100 mg tablet 30 mg PO DAILY 06/25/19 09/15/19 rosuvastatin 10 mg tablet 20 mg PO DAILY 06/25/19 09/15/19 sitagliptin phosphate 50 mg tablet 50 mg PO DAILY 06/25/19 09/15/19 (Januvia) escitalopram oxalate 5 mg tablet 5 mg PO DAILY 09/15/19 09/15/19 insulin glargine 100 unit/mL (3 unit subcut 11/29/22 mL) subcutaneous pen (Lantus Solostar U-100 Insulin) Allergies Allergy/AdvReac Type Severity Reaction Status Date / Time metformin AdvReac Severe DIARRHEA Verified 11/29/22 12:36 Review of Systems Review of Systems: All systems reviewed & are unremarkable except as noted in HPI and below PMFSH Past Medical History Medical History CVA (cerebral vascular accident) : Brain MRI June 2019 showed acute infarct in the left midbrain and old infarcts involving the right thalamus, bilateral basal ganglia, and left frontal lobe muller radiata as well as unchanged moderate nonspecific cerebral white matter disease and pontine disease, which likely represents chronic small vessel ischemic disease. : Carotid Doppler ultrasounds showed < 50% stenosis bilaterally. : Echocardiogram in January 2018 showed normal left ventricular systolic function with an EF of 65-70%. There was no evidence of intracardiac shunt at the atrial level with bubble study. Dyslipidemia Hypertension Type 2 diabetes mellitus :Hemoglobin A1c was 8.3% in January 2019. Surgical History Surgical History History of appendectomy History of cervical spinal surgery History of cholecystectomy History of hysterectomy Family History Family History Father Diabetes mellitus Acute myocardial infarction Cerebrovascular accident Hypertension Mother of unknown cause History of blood clots Social History Social History Social History: The patient lives in [place] with her . Her , Michael, as her surrogate decision maker and she is listed as a full code. She is a lifelong nonsmoker. No alcohol or drug abuse documented. Spiritual care concerns: No Agree to blood products: Yes Exam Narrative: General appearance: Well-developed, well-nourished, awake, answering I do not know for any questions Skin: Normal color Head: Normocephalic, nontraumatic Eyes: Clear conjunctiva ENT: Oropharynx normal, ears normal, nose normal Neck: Supple, nontender Chest and respiratory: Airway patent, no respiratory distress, no accessory muscle use Heart: Regular rate/rhythm Abdomen: Soft, nontender, no organomegaly, quiet bowel sounds Vascular: Normal peripheral pulses, normal capillary refill. Musculoskeletal: Normal range of motion, nontender back Neurologic: Alert and oriented x4.
--- NOTE | 2022-11-29 14:48 | ECG_ITS ---
Measurements Intervals [place] Rate: 98 P: 60 NE: 227 QRS: 13 QRSD: 81 T: 70 QT: 351 QTc: 448 Interpretive Statements SINUS RHYTHM WITH FIRST DEGREE AV BLOCK COMPARED TO ECG 09/15/2019 11:09:26 NE INTERVAL IS LONGER Electronically Signed On 11-29-2022 16:30:36 CDT by José Antonio Jackson M.D.
--- NOTE | 2022-11-29 14:48 | PC.NURSE ---
attempted to get patient up to use the restroom and patient was unable to stand without assistance. patient was very dizzy. provider made aware
[2022-11-29 16:30] LABS: Appearance Urine Cloudy (Clear); Bacteria Urine 4+ /hpf; Bilirubin Urine Negative (Negative); Blood Urine Negative (Negative); Color Urine Yellow (Yellow); Glucose Urine UA Negative (Negative); Ketones Urine Negative (Negative); Leukocyte Esterase Ur 2+ LEU/UL (Negative); Nitrate Urine Negative (Negative); Non Pathogenic Casts 0-2; Protein Urine Negative (Negative); RBC Urine 0-2 /hpf (0-2); Specific Grav Ur 1.009 (1.001-1.035); Squamous Epithelial Cell Urine None seen /hpf (Few); WBC Urine 21-50 /hpf; pH Urine 7.5 (5.0-9.0)
[2022-11-29 16:46] LABS: Add Urine Microscopic? YES
[2022-11-29] MEDS: SODIUM CHLORIDE 0.9% IV 1,000 ML 125 ML IV CONT (18:16)
[2022-11-29] MEDS: ONDANSETRON INJ 4 MG/2 ML VIAL IV PUSH (18:16)
--- NOTE | 2022-11-29 18:48 | PM.IMHP ---
H&P: HPI History of Present Illness Date/Time: 11/29/22 18:48 Chief Complaint: fall with a headache Narrative: this is a 77-year-old female patient who came to the ER PA embolus because of a fall. The patient misstepped going up the garage steps and fell backwards. The was in front of her at the time and heard a thud. He found her laying on the ground awake and denying any symptoms. The patient does have a history of dementia and usually use a cane during walking. The patient tells me that she does feel dizzy when she stands up. Chest x-ray was read as moderate elevation of left leaf of diaphragm and minimal atelectasis at the left lung base. Blood sugar 152. Urine was cloudy with 2+ leukocyte a sister is and wbc's 21-50. Finger x-ray was read as suggestion of a small laceration and possible subtle minimal subcutaneous emphysema of the dorsum of the second digit over the proximal interphalangeal area; no radiopaque foreign body cervical spine CT no fracture subluxation of the cervical spine. Anterior fusion from C5-C6 degenerative changes as above. Head CT read as no intracranial hemorrhage mass or active him for atrophy and chronic white matter changes as above. The patient was given Zofran and Tylenol in the emergency room. The patient was started on Rocephin. The patient is being admitted to observation status on the date of service of 11/29/2022. Review of Systems Review of Systems: All systems reviewed & are unremarkable except as noted in HPI and below Constitutional: Constitutional: Reports as per HPI and Reports no additional constitutional complaints Eyes: Eyes: Reports as per HPI and Reports no additional eye complaints ENT: Reports system reviewed and no additional complaints, except as documented and Reports Normal hearing present Cardiovascular: Cardiovascular: Reports no additional cardiovascular complaints Respiratory: Respiratory: Reports no additional respiratory complaints and Reports no additional respiratory complaints Gastrointestinal: Gastrointestinal: Reports as per HPI and Reports no additional gastrointestinal complaints Musculoskeletal: Musculoskeletal: Reports no additional musculoskeletal complaints Integumentary/Breasts: Skin/Breast: Reports system reviewed and no additional complaints, except as docu and Reports as per HPI Neurologic: Reports system reviewed and no additional complaints, except as documented, Reports as per HPI and Reports Normal hearing present Psychiatric: Psychiatric: Reports no additional psychiatric complaints and Reports as per HPI Endocrine: Endocrine: Reports no additional endocrine complaints Hematologic/Lymphatic: Hematologic/Lymphatic: Reports no additional hematologic/lymphatic complaints Allergic/Immunologic: Allergic/Immunologic: Reports no additional allergic/immunologic complaints [facility] Past Medical History Medical History (Updated 11/29/22 @ 23:53 by Barbi Umaña NP) CVA (cerebral vascular accident) : Brain MRI June 2019 showed acute infarct in the left midbrain and old infarcts involving the right thalamus, bilateral basal ganglia, and left frontal lobe muller radiata as well as unchanged moderate nonspecific cerebral white matter disease and pontine disease, which likely represents chronic small vessel ischemic disease. : Carotid Doppler ultrasounds showed < 50% stenosis bilaterally. : Echocardiogram in January 2018 showed normal left ventricular systolic function with an EF of 65-70%. There was no evidence of intracardiac shunt at the atrial level with bubble study. Dementia Depression with anxiety Dyslipidemia Hypertension Type 2 diabetes mellitus :Hemoglobin A1c was 8.3% in January 2019. Surgical History Surgical History History of appendectomy History of cervical spinal surgery History of cholecystectomy History of hysterectomy Family History Family History (Revi
[2022-11-29 21:34] LABS: Glucose Point of Care 152 mg/dl (65-105)
[2022-11-30] VITALS (15 sets, daily range): BP systolic 116–156; BP diastolic 62–93; PULSE 96–121; RESP 18–22; TEMP 36.4–37.2; O2SAT 95–99
[2022-11-30] MEDS: ONDANSETRON INJ 4 MG/2 ML VIAL IV PUSH (04:52)
[2022-11-30 05:30] LABS: Basophils Percent Auto 0.3 % (0.2-1.2); Eosinophils Percent Auto 0.6 % (0-4.4); Hematocrit 43.7 % (37.0-47.0); Hemoglobin 13.8 g/dL (12.0-15.0); Immature Granulocyte Absolute 0.02 K/mm3 (0.00-0.031); Immature Granulocyte Percent A 0.3 % (0-0.5); Lymphocytes Absolute Auto 1.07 K/mm3 (0.9-3.2); Lymphocytes Percent Auto 16.8 % (18.3-44.2); Mean Corpuscular HGB Conc 31.6 g/dl (32-36); Mean Corpuscular Hemoglobin 29.2 pg (26-34); Mean Corpuscular Volume 92.6 fl (80-100); Mean Platelet Volume 9.5 fl (7.4-10.4); Monocytes Absolute Auto 0.6 K/mm3 (0.1-0.6); Monocytes Percent Auto 9.4 % (2.6-8.5); Neutrophils Absolute Auto 4.6 K/mm3 (1.3-6.7); Neutrophils Percent Auto 72.6 % (45.5-73.1); Platelet Count Result 207 k/mm3 (150-375); Red Blood Count 4.72 M/mm3 (4.2-5.4); Red Cell Distribution Width 13.2 % (11.5-14.5); White Blood Count 6.4 K/mm3 (4.5-10.0)
[2022-11-30 05:44] LABS: Lactic Acid Reflex 1.4 mmol/L (0.7-2.0)
[2022-11-30 05:45] LABS: Alanine Aminotransferase 36 U/L (6-35); Albumin Level 3.8 g/dL (3.5-5.1); Alkaline Phosphatase 58 U/L (38-126); Anion Gap 4 mmol/L (8-16); Aspartate Amino Transferase 34 U/L (14-36); Bilirubin,Total 0.6 mg/dL (0.2-1.3); Blood Urea Nitrogen 12 mg/dL (7-17); Calcium 8.3 mg/dL (8.4-10.2); Carbon Dioxide 29 mmol/L (22-30); Chloride 105 mmol/L (98-107); Estimated CRCL calculation 51 ml/min; Estimated Glomerular Filt Rate > 60; Glucose 132 mg/dL (65-110); Sodium 138 mmol/L (137-145)
[2022-11-30 06:03] LABS: Hemoglobin A1C 7.1 % (<5.7)
[2022-11-30] MEDS: SODIUM CHLORIDE 0.9% IV 1,000 ML 125 ML IV CONT ×3 (06:33→16:20)
[2022-11-30 08:42] LABS: Glucose Point of Care 138 mg/dl (65-105)
[2022-11-30] MEDS: MECLIZINE HCL 6.25 MG TABLET PO ×2 (09:24→16:21)
[2022-11-30] MEDS: ROSUVASTATIN 10 MG TABLET 20 MG PO (09:24)
[2022-11-30] MEDS: LOSARTAN POTASSIUM 100 MG TABLET PO (09:24)
[2022-11-30] MEDS: ESCITALOPRAM OXALATE 5 MG TABLET PO (09:24)
[2022-11-30] MEDS: GLIMEPIRIDE 1 MG TABLET PO ×2 (09:24→16:21)
[2022-11-30] MEDS: ASPIRIN 81 MG ENTERIC TABLET PO (09:25)
[2022-11-30] MEDS: amLODIPine BESYLATE 5 MG TABLET 10 MG PO (09:25)
[2022-11-30] MEDS: CLOPIDOGREL BISULFATE 75 MG TABLET PO (09:25)
[2022-11-30] MEDS: INSULIN GLARGINE (*BKC) 100 UNITS/ML 30 UNITS SUB-Q (09:27)
--- NOTE | 2022-11-30 12:01 | PM.IMPN ---
Progress Note: A&P Assessment and Plan (1) Urinary tract infection: Qualifiers: Hematuria presence: without hematuria Urinary tract infection type: site unspecified Qualified Code(s): N39.0 - Urinary tract infection, site not specified Code(s): N39.0 - Urinary tract infection, site not specified Status: Acute Assessment and Plan: the patient was started on Rocephin. Blood and urine cultures are pending. (2) Dizziness: Code(s): R42 - Dizziness and giddiness Status: Acute Assessment and Plan: Likely benign positional vertigo. Patient feels like she is falling to the right side. orthostatic blood pressures to be checked. - continue with meclizine. The patient has had a previous CVA and is on aspirin and Plavix. No intracranial hemorrhage, mass, or acute infarct. Atrophy and chronic white matter changes, as above Will order PT and OT. PT to do [place]-Hallpike maneuver (3) Dementia: Code(s): F03.90 - Unspecified dementia, unspecified severity, without behavioral disturbance, psychotic disturbance, mood disturbance, and anxiety Status: Acute Assessment and Plan: Continue on Lexapro (4) Depression with anxiety: Code(s): F41.8 - Other specified anxiety disorders Status: Acute Assessment and Plan: continue with Lexapro (5) Hypertension: Code(s): I10 - Essential (primary) hypertension Status: Chronic Assessment and Plan: continue with losartan And amlodipine (6) Dyslipidemia: Code(s): E78.5 - Hyperlipidemia, unspecified Status: Chronic Assessment and Plan: heart healthy diet and Crestor (7) Type 2 diabetes mellitus: Code(s): E11.9 - Type 2 diabetes mellitus without complications Status: Acute Assessment and Plan: Accu-Cheks AC and HS with sliding scale insulin check A1c. Continue with glimepiride and Januvia. Subjective Date/time seen: 11/30/22 12:01 Interval history: Patient has significant dizziness Review of Systems Review of Systems: All systems reviewed & are unremarkable except as noted in HPI and below Constitutional: Constitutional: Reports as per HPI and Reports no additional constitutional complaints Eyes: Eyes: Reports as per HPI and Reports no additional eye complaints ENT: Reports system reviewed and no additional complaints, except as documented and Reports Normal hearing present Cardiovascular: Cardiovascular: Reports no additional cardiovascular complaints Respiratory: Respiratory: Reports no additional respiratory complaints and Reports no additional respiratory complaints Gastrointestinal: Gastrointestinal: Reports as per HPI and Reports no additional gastrointestinal complaints Musculoskeletal: Musculoskeletal: Reports no additional musculoskeletal complaints Integumentary/Breasts: Skin/Breast: Reports system reviewed and no additional complaints, except as docu and Reports as per HPI Neurologic: Reports system reviewed and no additional complaints, except as documented, Reports as per HPI and Reports Normal hearing present Psychiatric: Psychiatric: Reports no additional psychiatric complaints and Reports as per HPI Endocrine: Endocrine: Reports no additional endocrine complaints Hematologic/Lymphatic: Hematologic/Lymphatic: Reports no additional hematologic/lymphatic complaints Allergic/Immunologic: Allergic/Immunologic: Reports no additional allergic/immunologic complaints Exam Const: General: cooperative, healthy appearing, comfortable, no acute distress, well developed, alert, awake, Physically active and well nourished Nutritional Appearance: average body habitus and well nourished Orientation/consciousness: oriented to person and oriented to place Limitations: no limitations HENMT: Head: normal to inspection, No palpable skull fracture present, normocephalic and atraumatic Ears: hearing grossly normal bilaterally a
[2022-11-30 12:41] LABS: Glucose Point of Care 116 mg/dl (65-105)
[2022-11-30 17:35] LABS: Glucose Point of Care 132 mg/dl (65-105)
[2022-11-30 21:18] LABS: Glucose Point of Care 183 mg/dl (65-105)
[2022-12-01] VITALS (14 sets, daily range): BP systolic 127–161; BP diastolic 66–94; PULSE 85–114; RESP 16–18; TEMP 37–37.2; O2SAT 95–99
[2022-12-01] MEDS: SODIUM CHLORIDE 0.9% IV 1,000 ML 125 ML IV CONT ×3 (03:03→21:42)
[2022-12-01 08:19] LABS: Glucose Point of Care 62 mg/dl (65-105)
--- NOTE | 2022-12-01 08:33 | PCPTNOTE ---
Attempted to see patient however RN states patient's blood sugar is too low to be seen at this time.
[2022-12-01] MEDS: MECLIZINE HCL 6.25 MG TABLET PO ×3 (08:34→17:20)
[2022-12-01] MEDS: ASPIRIN 81 MG ENTERIC TABLET PO (08:34)
[2022-12-01] MEDS: CLOPIDOGREL BISULFATE 75 MG TABLET PO (08:34)
[2022-12-01] MEDS: GLIMEPIRIDE 1 MG TABLET PO ×2 (08:35→17:19)
[2022-12-01] MEDS: ROSUVASTATIN 10 MG TABLET 20 MG PO (08:35)
[2022-12-01] MEDS: ESCITALOPRAM OXALATE 5 MG TABLET PO (08:35)
[2022-12-01] MEDS: LOSARTAN POTASSIUM 100 MG TABLET PO (08:35)
[2022-12-01] MEDS: amLODIPine BESYLATE 5 MG TABLET 10 MG PO (08:35)
[2022-12-01 09:01] LABS: Glucose Point of Care 97 mg/dl (65-105)
--- NOTE | 2022-12-01 10:41 | PM.IMPN ---
Progress Note: A&P Assessment and Plan (1) Urinary tract infection: Qualifiers: Hematuria presence: without hematuria Urinary tract infection type: site unspecified Qualified Code(s): N39.0 - Urinary tract infection, site not specified Code(s): N39.0 - Urinary tract infection, site not specified Status: Acute Assessment and Plan: on Rocephin. Blood cultures negative to date. Urine culture growing Gram-negative bacilli (2) Dizziness: Code(s): R42 - Dizziness and giddiness Status: Acute Assessment and Plan: Likely benign positional vertigo. Patient feels like she is falling to the right side. orthostatic blood pressures to be checked. - continue with meclizine. The patient has had a previous CVA and is on aspirin and Plavix. No intracranial hemorrhage, mass, or acute infarct. Atrophy and chronic white matter changes, as above PT and OT. PT to do Mirza-Hallpike maneuver Therapy recommends SNF. Consult Case Management for placement (3) Dementia: Code(s): F03.90 - Unspecified dementia, unspecified severity, without behavioral disturbance, psychotic disturbance, mood disturbance, and anxiety Status: Acute Assessment and Plan: Continue on Lexapro (4) Depression with anxiety: Code(s): F41.8 - Other specified anxiety disorders Status: Acute Assessment and Plan: continue with Lexapro (5) Hypertension: Code(s): I10 - Essential (primary) hypertension Status: Chronic Assessment and Plan: continue with losartan And amlodipine (6) Dyslipidemia: Code(s): E78.5 - Hyperlipidemia, unspecified Status: Chronic Assessment and Plan: heart healthy diet and Crestor (7) Type 2 diabetes mellitus: Code(s): E11.9 - Type 2 diabetes mellitus without complications Status: Acute Assessment and Plan: Accu-Cheks AC and HS with sliding scale insulin check A1c. Continue with glimepiride and Januvia. Subjective Date/time seen: 12/01/22 10:41 Interval history: Patient reports her dizziness has improved. Review of Systems Review of Systems: All systems reviewed & are unremarkable except as noted in HPI and below Constitutional: Constitutional: Reports as per HPI and Reports no additional constitutional complaints Eyes: Eyes: Reports as per HPI and Reports no additional eye complaints ENT: Reports system reviewed and no additional complaints, except as documented and Reports Normal hearing present Cardiovascular: Cardiovascular: Reports no additional cardiovascular complaints Respiratory: Respiratory: Reports no additional respiratory complaints and Reports no additional respiratory complaints Gastrointestinal: Gastrointestinal: Reports as per HPI and Reports no additional gastrointestinal complaints Musculoskeletal: Musculoskeletal: Reports no additional musculoskeletal complaints Integumentary/Breasts: Skin/Breast: Reports system reviewed and no additional complaints, except as docu and Reports as per HPI Neurologic: Reports system reviewed and no additional complaints, except as documented, Reports as per HPI and Reports Normal hearing present Psychiatric: Psychiatric: Reports no additional psychiatric complaints and Reports as per HPI Endocrine: Endocrine: Reports no additional endocrine complaints Hematologic/Lymphatic: Hematologic/Lymphatic: Reports no additional hematologic/lymphatic complaints Allergic/Immunologic: Allergic/Immunologic: Reports no additional allergic/immunologic complaints Exam Const: General: cooperative, healthy appearing, comfortable, no acute distress, well developed, alert, awake, Physically active and well nourished Nutritional Appearance: average body habitus and well nourished Orientation/consciousness: oriented to person and oriented to place Limitations: no limitations HENMT: Head: normal to inspection, No palpable skull fracture presen
[2022-12-01] MEDS: INSULIN GLARGINE (*BKC) 100 UNITS/ML 15 UNITS SUB-Q (11:04)
[2022-12-01 12:15] LABS: Glucose Point of Care 141 mg/dl (65-105)
[2022-12-01 17:13] LABS: Glucose Point of Care 74 mg/dl (65-105)
[2022-12-01 21:21] LABS: Glucose Point of Care 137 mg/dl (65-105)
[2022-12-02] VITALS (7 sets, daily range): BP systolic 150–164; BP diastolic 77–86; PULSE 83–100; RESP 16–20; TEMP 36.7–37.1; O2SAT 98–99
[2022-12-02 08:05] LABS: Glucose Point of Care 78 mg/dl (65-105)
[2022-12-02] MEDS: ASPIRIN 81 MG ENTERIC TABLET PO (08:38)
[2022-12-02] MEDS: amLODIPine BESYLATE 5 MG TABLET 10 MG PO (08:38)
[2022-12-02] MEDS: ROSUVASTATIN 10 MG TABLET 20 MG PO (08:39)
[2022-12-02] MEDS: CLOPIDOGREL BISULFATE 75 MG TABLET PO (08:39)
[2022-12-02] MEDS: ESCITALOPRAM OXALATE 5 MG TABLET PO (08:39)
[2022-12-02] MEDS: MECLIZINE HCL 6.25 MG TABLET PO ×3 (08:39→17:21)
[2022-12-02] MEDS: LOSARTAN POTASSIUM 100 MG TABLET PO (08:39)
[2022-12-02] MEDS: GLIMEPIRIDE 1 MG TABLET PO ×2 (08:39→17:21)
--- NOTE | 2022-12-02 09:54 | PM.DS ---
DS: Admitting Diagnosis Discharge Date 12/02/2022 Admitting Diagnosis Vertigo Dizziness DS: Discharge Diagnosis Discharge Diagnosis (1) Dizziness: Code(s): R42 - Dizziness and giddiness Status: Acute (2) Urinary tract infection: Qualifiers: Hematuria presence: without hematuria Urinary tract infection type: site unspecified Qualified Code(s): N39.0 - Urinary tract infection, site not specified Code(s): N39.0 - Urinary tract infection, site not specified Status: Acute (3) Type 2 diabetes mellitus: Code(s): E11.9 - Type 2 diabetes mellitus without complications Status: Acute DS: Summary Hospital Course Hospital Course: Assessment and Plan (1) Urinary tract infection: ?Qualifiers: ?Hematuria presence:?without hematuria??Urinary tract infection type:?site unspecified? Qualified Code(s):?N39.0 - Urinary tract infection, site not specified ?Code(s): N39.0 - Urinary tract infection, site not specified ?Status:?Acute ?Assessment and Plan: on Rocephin.? Blood cultures negative to date.? Urine culture growing Gram-negative bacilli. Finish course with Rocephin (2) Dizziness: ?Code(s): R42 - Dizziness and giddiness ?Status:?Acute ?Assessment and Plan: Likely benign positional vertigo.? Versus orthostatic hypotension. - continue with meclizine. ? The patient has had a previous CVA and is on aspirin and Plavix. No intracranial hemorrhage, mass, or acute infarct. ? Atrophy and chronic white matter changes, as above PT and OT.? PT to do Mirza-Hallpike maneuver Therapy recommends SNF.? Consult Case Management for placement (3) Dementia: ?Code(s): F03.90 - Unspecified dementia, unspecified severity, without behavioral disturbance, psychotic disturbance, mood disturbance, and anxiety ?Status:?Acute ?Assessment and Plan: ? Continue on Lexapro (4) Depression with anxiety: ?Code(s): F41.8 - Other specified anxiety disorders ?Status:?Acute ?Assessment and Plan: ?continue with Lexapro (5) Hypertension: ?Code(s): I10 - Essential (primary) hypertension ?Status:?Chronic ?Assessment and Plan: ?continue with losartan? And amlodipine (6) Dyslipidemia: ?Code(s): E78.5 - Hyperlipidemia, unspecified ?Status:?Chronic ?Assessment and Plan: ?heart healthy diet and Crestor (7) Type 2 diabetes mellitus: ?Code(s): E11.9 - Type 2 diabetes mellitus without complications ?Status:?Acute ?Assessment and Plan: ?Accu-Cheks AC and HS with sliding scale insulin check A1c.? Continue with glimepiride and Januvia. PT notify consult. Patient is being discharged to rehab. Would recommend using Antonio hose or compression stockings at the rehab facility Time Spent with Patient Time attestation: Total time spent providing and/or coordinating discharge services: DS: Data Data Completed and Pending Labs on day of discharge: Labs from last 24 hours 12/02/22 12/01/22 12/01/22 07:56 19:59 17:01 POC Capillary Glucose 78 137 H 74 12/01/22 12:09 POC Capillary Glucose 141 H Preliminary micro results at discharge 11/30/22 00:30 Blood Culture - Preliminary Blood 11/30/22 00:30 Blood Culture - Preliminary Blood Discharge Plan Discharge Discharging Clinician: Jayden Lamb Anticipated Discharge Date/Time: 12/02/22 09:53 Patient Disposition: SNF Activity: no preference Diet: heart healthy Stand Alone Forms: General Discharge Information Follow-up/Referrals: Lizbeth,Kapil Huggins MD [Primary Care Provider] - Discharge Medications: Continued insulin glargine [Lantus Solostar U-100 Insulin] 100 unit/mL (3 mL) Insulin Pen 30 unit SUBCUT DAILY glimepiride 1 mg tablet 1 mg PO BID clopidogrel 75 mg Tablet 75 mg PO DAILY aspirin 81 mg Tablet,Delayed Release (Dr/Ec) 81 mg PO DAILY amlodipine 10 mg Tablet 10 mg PO DA
[2022-12-02] MEDS: INSULIN GLARGINE (*BKC) 100 UNITS/ML 15 UNITS SUB-Q (10:00)
[2022-12-02 12:15] LABS: Glucose Point of Care 215 mg/dl (65-105)
[2022-12-02] MEDS: INSULIN ASPART (*BKC) 100 UNITS/ML SUB-Q (12:19)
[2022-12-02 17:05] LABS: Glucose Point of Care 107 mg/dl (65-105)
[2022-12-02 21:18] LABS: Glucose Point of Care 151 mg/dl (65-105)
[2022-12-03 06:00] VITALS: BP 157/83; PULSE 100; RESP 20; TEMP 36.5; O2SAT 98
[2022-12-03 08:43] LABS: Glucose Point of Care 84 mg/dl (65-105)
[2022-12-03] MEDS: GLIMEPIRIDE 1 MG TABLET PO (09:59)
[2022-12-03] MEDS: ROSUVASTATIN 10 MG TABLET 20 MG PO (09:59)
[2022-12-03] MEDS: MECLIZINE HCL 6.25 MG TABLET PO ×2 (10:00→13:27)
[2022-12-03] MEDS: amLODIPine BESYLATE 5 MG TABLET 10 MG PO (10:00)
[2022-12-03] MEDS: CLOPIDOGREL BISULFATE 75 MG TABLET PO (10:00)
[2022-12-03] MEDS: ESCITALOPRAM OXALATE 5 MG TABLET PO (10:00)
[2022-12-03] MEDS: LOSARTAN POTASSIUM 100 MG TABLET PO (10:00)
[2022-12-03] MEDS: ASPIRIN 81 MG ENTERIC TABLET PO (10:01)
[2022-12-03] MEDS: INSULIN GLARGINE (*BKC) 100 UNITS/ML 15 UNITS SUB-Q (10:02)
[2022-12-03 12:28] LABS: Glucose Point of Care 99 mg/dl (65-105)
[2022-12-03 14:21] VITALS: BP 121/70; PULSE 97; RESP 18; TEMP 37.2; O2SAT 99
== END 2022-12-03 15:12 | DRG 690 ==
LOC: ANHED 17:20 → ANH3MED 17:42
PROVIDERS: Nurse Practitioner; Admitting Provider Family Medicine; Emergency Provider Emergency Medicine; PCP Internal Medicine; Visit Provider Hospitalist
DX: N39.0 Urinary tract infection, site not specified (principal); H81.10 Benign paroxysmal vertigo, unspecified ear; I95.1 Orthostatic hypotension; W10.8XXA Fall (on) (from) other stairs and steps, initial encounter; B96.89 Other specified bacterial agents as the cause of diseases classified elsewhere; F03.90 Unspecified dementia, unspecified severity, without behavioral disturbance, psychotic disturbance, mood disturbance, and anxiety; F41.8 Other specified anxiety disorders; I10 Essential (primary) hypertension; E78.5 Hyperlipidemia, unspecified; E11.9 Type 2 diabetes mellitus without complications; Z90.49 Acquired absence of other specified parts of digestive tract; Z90.710 Acquired absence of both cervix and uterus; Z79.82 Long term (current) use of aspirin; Z86.73 Personal history of transient ischemic attack (TIA), and cerebral infarction without residual deficits
CPT/HCPCS: 36415; 70450; 71045; 72125; 73140; 80053; 81001; 82948; 83036; 83605; 83735; 84443; 85025; 85610; 87040; 87077; 87086; 87186; 93005; 96361; 96365; 96375; 96376; 97110; 97116; 97162; 97165; 97530; 97535; 99285; A9270; G0378; J0696; J1815; J2405; J7030; L0140

== ENCOUNTER 2025-01-02 20:42 | Emergency (ER) | payer MEDICARE, OTHER, SELFPAY ==
--- OUTSIDE RECORDS SUMMARY | 2025-01-02 20:45 | XMS_ITS | Encounter Summary ---
Author Organization [facility] Address [address] [place] [address] Care Team Providers Care C D Still Operator Name Role Phone Kapil Nieves MD Primary Care Provider [phone] Reason for Visit * Reason Onset Date Comments Nurse Only 04/19/2022 Future Appointment 04/19/2022 Encounter Details Date Type Department Care Team (Late st Contact Info) Description 04/19/2022 Telephone [facility] [address] [place] [phone] Gabo Burt MD [facility] [phone] Nurse Only; Future Appointment Social History Tobacco Use Types Packs/Day Years Used Date Smoking Tobacco: Never Assessed Comments Unknown Sex and Gender Information Value Date Recorded Sex Assigned at Not on file Legal Sex Female 8:39 AM CDT Gender Identity Not on file Sexual Orientation Not on file documented as of this encounter Miscellaneous Notes * Telephone Encounter - Jessica Santiago - 04/19/2022 10:09 AM CDT Pt is calling to schedule with documented in this encounter Plan of Treatment Upcoming Encounters Date Type Department Care Team (Late st Contact Info) Description 02/17/2025 3:00 PM CDT Office Visit [facility] - Dermatology [address] [place] [phone] Dalia Melendez MD [address] [place] [address] [address] [place] [phone] documented as of this encounter Visit Diagnoses Not on filedocumented in this encounter Care Teams C D Still Operator Relationship Specialty Start Date End Date Kapil Nieves MD [address] [address] PCP - General Internal Medicine 09/25/23 documented as of this encounter
--- OUTSIDE RECORDS SUMMARY | 2025-01-02 20:45 | XMS_ITS | Clinical Summary ---
Author Organization [facility] Address [address] [place] [place] [address] Care Team Providers Care Vice President Digital Strategist Name Role Phone Kapil Nieves MD Primary Care Provider [phone] [facility] [employer],non-owned Affiliates and Associated Physician Practices is amultiple site organization consisting of ambulatory clinics and hospital sitesin [place], [place], [place] and [place]. This disclosure is being madepursuant to the Care Everywhere program and may not contain all information available regarding this patient. Last updated 18.[facility] [employer] Allergies Active Allergy Reactions Criticality Noted Date Comments Metformin Diarrhea Low 01/16/2021 Sulfamethoxazole W-Trimethoprim Nausea and/or Vomiting Low 08/22/2020 Medications * Be aware that medications may not be up to date on this document. Alwaysverify current medications with the patient. amLODIPine (Norvasc) 10 MG tablet Take 1 (one) tablet by mouth once daily 3 Active aspirin (Aspirin) 81 MG chew tablet Active clopidogrel (plaVIX) 75 MG tablet Take 1 (one) tablet by mouth once daily 4 Active escitalopram (Lexapro) 5 MG tablet Take 1 (one) tablet by mouth once daily 4 Active Lantus SoloStar pen ADMINISTER 30 UNITS UNDER THE SKIN DAILY 4 Active losartan (Cozaar) 100 MG tablet Take 1 (one) tablet by mouth once daily 3 Active rosuvastatin (Crestor) 20 MG tablet 4 Active SITagliptin (Januvia) 50 MG tablet Take 1 (one) tablet by mouth once daily 4 Active triamcinolone acetonide (Kenalog) 0.1 % ointment Apply to the rash on your legs once nightly. 30 days supply. 80 g 3 4 Active ketoconazole (Nizoral) 2 % shampooIndicati ons:Other seborrheic dermatitis Apply to wet hair, leave on for 3 minutes, then rinse; two times weekly. 30 days supply 120 mL 5 5 Active fluocinonide (Lidex) 0.05 % solutionIndicat ions:Other seborrheic dermatitis Apply to affected areas on scalp once daily as needed for severe itching. 30 days supply. 40 mL 1 5 Active Active Problems Problem Noted Date Diagnosed Date Type 2 diabetes mellitus wit hout complication, without long-term current use of insulin 11/01/2021 Hyperlipidemia 05/16/2020 Encounter for post surgical wound check 07/09/19 Status post placement of implantable loop record er 06/30/2019 Overview (08/13/2024): [employer] Implantable Loop Recorder. 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 [employer] remote home monitoring. CVA, old, dysarthria 03/25/2019 Hypertension associated with diabetes 03/25/2019 Paroxysmal SVT (supraventricular tachycardia) Knee pain 09/03/2016 Social History Tobacco Use Types Packs/Day Years Used Date Smoking Tobacco: Never Smokeless Tobacco: Never Tobacco Cessation:Counseling Given: Not Answered Comments Unknown Sex and Gender Information Value Date Recorded Sex Assigned at Not on file Legal Sex Female 8:39 AM CDT Gender Identity Not on file Sexual Orientation Not on file Plan of Treatment Upcoming Encounters Date Type Department Care Team (Late st Contact Info) Description 02/17/2025 3:00 PM CDT Office Visit [facility] - Dermatology [address] [place] [address], [place] [phone] Dalia Melendez MD [address] [place] [address] [address] [place] [address] Health Maintenance Due Date Last Done Comments MEDICARE AWV 12 MONTHS 1945 DIABETES-SERUM CREATININE 1963 DTAP/TDAP/TD VACCINES (1 - Tdap) 1964 PNEUMOCOCCAL VACCINE 50+ (1 of 2 - PCV) 1964 ZOSTER VACCINE (1 of 2) 1995 Respiratory Syncytial Virus (RSV) Vaccine Pt: or over 60 yrs (1 - 1-dose 75+ series) 2020 COVID-19 VACCINE (1 - 2023- season) 2024 DEPRESSION SCREENING 06/24/2024 DIABETES - URINE PROTEIN SCREENING 06/24/2024 DIABETES RETINOPATHY SCREENING 08/13/2024 DIABETES-FOOT EXAM WITH MONOFILAMENT 08/13/2024 INFLUENZA VACCINE (#1) 2025 , 05/26/2019, 03/30/2018 DIABETES-HGB A1C 03/04/2025 09/01/2024, 09/2023, 11/22/2023, Additional history exists BONE DENSITY TESTING Completed 02/07/2022 HEPATITIS B VACCINE Aged Out No longe r eligible based on patient's age to complete this topic HIB VACCINE Aged Out No longer eligi ble based on patient's age to complete this topic HPV VACCINE Aged Out No longer eligi ble based on patient's age to complete this topic MENINGOCOCCAL (Group B) VACCINE SHARED DECISION-MAKING Aged Out No longer eligible based on patient's age to complete this topic MENINGOCOCCAL GROUPS A/C/Y/W VACCINE Aged Out No longer eligible based on patient's age to complete this topic Insurance MEDICARE [facility] [place] [place] Address: [address] [address] [place] [address] Care Teams Vice President Digital Strategist Relationship Specialty Start Date End Date Kapil Nieves MD [id number] [place] [address] PCP - General Internal Medicine 09/25/23
--- OUTSIDE RECORDS SUMMARY | 2025-01-02 20:45 | XMS_ITS | Clinical Summary ---
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 Name Role Phone Kapil Nieves MD Primary Care Provider Allergies Active Allergy Reactions Criticality Noted Date Comments Sulfamethoxazole-Trimethoprim Nausea & Vomiting Low 08/22/2020 Metformin Diarrhea Low 01/16/2021 Medications aspirin 81 mg chewable tablet Active cholecalcifero l (VITAMIN D-3) 2000 unit capsule Active mometasone (ELOCON) 0.1 % cream 11/10/19 21 Active glimepiride (AMARYL) 1 mg tablet TAKE 5 TABLETS(5 MG) BY MOUTH DAILY 30 tablet 2 09/11/19 23 Active glipiZIDE (GLUCOTROL) 5 mg tablet 1 tablet (5 mg total) 12/15/19 23 Active clopidogreL (PLAVIX) 75 mg tablet TAKE 1 TABLET BY MOUTH EVERY DAY 90 tablet 3 10/15/19 24 Active escitalopram (LEXAPRO) 5 mg tablet TAKE 1 TABLET BY MOUTH DAILY 90 tablet 3 10/15/19 24 Active triamcinolone (KENALOG) 0.1 % ointment APPLY TO THE RASH ON YOUR LEGS ONCE NIGHTLY Active losartan (COZAAR) 100 mg tablet TAKE 1 TABLET(100 MG) BY MOUTH DAILY 90 tablet 3 12/05/19 24 Active amLODIPine (NORVASC) 10 mg tablet TAKE 1 TABLET BY MOUTH DAILY 90 tablet 3 12/29/19 24 Active rosuvastatin (CRESTOR) 20 mg tablet TAKE 1 TABLET(20 MG) BY MOUTH DAILY 90 tablet 3 01/08/20 24 Active fluocinonide (LIDEX) 0.05 % external solution APPLY TO THE AFFECTED AREA ON SCALP ONCE DAILY NEEDED FOR SEVERE ITCHING Active ketoconazole (NIZORAL) 2 % shampoo Apply to wet hair, leave on for 3 minutes, then rinse; two times weekly. 30 days supply 07/22/19 25 Active insulin glargine (LANTUS) 100 unit/mL (3 mL) pen for injectionIndic ations:Dyslipi demia associated with type 2 diabetes mellitus (HCC),Type 2 diabetes mellitus with hyperglycemia, with long-term current use of insulin (HCC) ADMINISTER 30 UNITS UNDER THE SKIN DAILY 15 mL 3 11/10/19 25 Active BD Taina 2nd Gen Pen Needle 32 gauge x 5/32 needle USE DAILY 100 each 3 12/25/19 25 Active BD Taina 2nd Gen Pen Needle 32 gauge x 5/32 needle USE DAILY 100 each 3 12/12/19 24 025 Discontinued doxycycline (VIBRAMYCIN) 100 mg capsule Take 1 tablet/capsule (100 mg total) by mouth 2 (two) times a day for 10 days 20 tablet/capsu le 12/11/19 25 025 Active Problems Problem Noted Date Diagnosed Date Type 2 diabetes mellitus wit hout complication, without long-term current use of insulin 11/01/2021 Assessment & Plan (09/01/2024 11:17 AM CDT): A1c acceptable, trying to avoid hypoglycemia Hyperlipidemia 05/16/2020 Assessment & Plan (09/01/2024 11:17 AM CDT): Stable doing well Encounter for post surgical wound check 07/09/19 20 Status post placement of implantable loop record er 06/30/2019 Overview (06/30/2019): [employer] Implantable Loop Recorder. 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 [employer] remote home monitoring. Paroxysmal SVT (supraventricular tachycardia) CVA, old, dysarthria 03/25/2019 Assessment & Plan (09/01/2024 11:16 AM CDT): Stable, doing well Hypertension associated with diabetes 03/25/2019 Assessment & Plan (09/01/2024 11:16 AM CDT): Bp at target, continue medication for target directed therapy Knee pain 09/03/2016 Resolved Problems Problem Noted Date Diagnosed Date Resolved Date Tachycardia-bradycardia 03/25/2019 02/2 02/2024 Dyslipidemia associated with type 2 diabetes mellitus (CMS/HCC) 03/25/2019 11/22/2023 Encounters Date Type Department Care Team Description 12/14/2024 11:45 AM CDT Office Visit [facility] [address] [facility] [address] [place] [address] Lindsay More PA Primary osteoarthritis of left knee (Primary Dx) 12/10/2024 Results Follow-Up [facility] [address] [place] [address] [address] [place] [address] Kapil Nieves MD CBC with auto differential, Differential, auto 12/09/2024 3:00 PM CDT Lab [facility] Outpatient Lab at [address] [address] 12/09/2024 2:57 PM CDT - 12/09/2024 11:59 PM CDT Hospital Encounter [address] [address] Rash; Itching Discharge Disposition: Discharge to home or self care 12/09/2024 Telephone [facility] [address] [place] [address] [address] [place] [address] Kapil Nieves MD from Last 3 Months Immunizations Immunization Administration Dates Next Due Influenza, Quad, Adjuvantated, Intramuscular 02/2023,05/02/2022 Influenza, Quadrivalent, Hig h Dose, Preservative Free, Intrr 03/07/2021,04/26/2020 Influenza, Trivalent, Adjuvanted, Intramuscular 04/23/2024 Influenza, Trivalent, High D ose, Split, Preservative Free, Intramuscular 05/26/2019,03/30/2018 Surgical History Surgery Date Site/Laterality Comments APPENDECTOMY Medical History Medical History Date Comments Personal history of transien t ischemic attack (TIA), and cerebral infarction without residual deficits History of stroke - (Added b y TW Conv) Personal history of other en docrine, nutritional and metabolic disease History of hyperlipi demia - (Added by TW Conv) Diabetes mellitus (HCC) Stroke (HCC) Hypertension Family History Medical History Relation Name Comments No Known Problems Father No Known Problems Mother Relation Name Status Comments Father (Age 69) Mother (Age 82) Social History Tobacco Use Types Packs/Day Years Used Date Smoking Tobacco: Never Smokeless Tobacco: Never Tobacco Cessation:Counseling Given: Not Answered Alcohol Use Standard Drinks/Week Comments Never 0 (1 standard drink = 0.6 oz pur e alcohol) AUDIT-C Answer Date Recorded Frequency of Alcohol Consumption Never 10/28/2018 Average Number of Drinks Not on file 019 Frequency of Binge Drinking Not on file 12/2018 Overall Financial Resource Strain (CARDIA) Answe r Date Recorded Difficulty of Paying Living Expenses Patient dec lined 10/28/2018 Hunger Vital Sign Answer Date Recorded Worried About Running Out of Food in the Last Ye ar Patient declined 10/28/2018 Ran Out of Food in the Last Year Patient decline d 10/28/2018 PRAPARE - Transportation Answer Date Re corded Lack of Transportation (Medical) Patient decline d 10/28/2018 Lack of Transportation (Non-Medical) Patient dec lined 10/28/2018 Comments Unknown Sex and Gender Information Value Date Recorded Sex Assigned at Not on file Legal Sex Female 6:20 PM QUITLINE COUNSELOR Gender Identity Not on file Sexual Orientation Not on file 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 Not on file Not on file Obstetrics History Last Filed Vital Signs Vital Sign Reading Time Taken Comments Blood Pressure 154/83 09/01/2024 10:39 AM CDT Pulse 91 09/01/2024 10:39 AM CDT Temperature 36.7 C (98 F) 05/03/2023 1:51 PM QUITLINE COUNSELOR Respiratory Rate 16 05/03/2023 1:51 PM QUITLINE COUNSELOR Oxygen Saturation 97% 05/03/2023 1:51 PM QUITLINE COUNSELOR Inhaled Oxygen Concentration - - Weight 68 kg (150 lb) 09/01/2024 10:39 AM CDT Height 157.5 cm (5' 2) 04/27/2024 12:17 PM QUITLINE COUNSELOR Body Mass Index 27.44 04/27/2024 12:17 PM QUITLINE COUNSELOR Plan of Treatment Health Maintenance Due Date Last Done Comments Depression Screening 1945 Fall Risk Assessment 1945 Hepatitis C Screening 1945 Dilated Eye Exam 1945 Foot Exam 1945 DTaP/Tdap/Td Vaccine (1 - Tdap) 1956 Hepatitis B Screening 1963 Pneumococcal vaccine 65+ (1 of 2 - PCV) 1964 Zoster Vaccine (1 of 2) 1995 Well Visit 65+ 2010 Albumin Creatinine Ratio, Urine 10/23/2023 Osteoporosis Screening-Bone Density Scan 02/08/2024 02/07/2022 eGFR 02/15/2024 02/14/2023, 10/22/2022 Covid-19 Vaccine (3 - 2023-2 5 season) 2024 09/09/2020, 08/19/2020 Influenza Vaccine (#1) 2025 , 05/02/2023, 05/02/2022, Additional history exists Hemoglobin A1C 03/04/2025 09/01/2024, 09/2023, 11/22/2023, Additional history exists Lipid Panel 04/27/2025 04/27/2024, 04/25, 02/07/2022, Additional history exists Procedures Procedure Name Priority Date/Time Associated Diagnosis Comments DIFFERENTIAL AUTO Routine 12/09/2024 2:5 7 PM CDT Rash Itching CBC WITH AUTO DIFFERENTIAL Routine 12/09/2024 2:57 PM CDT Rash Itching POCT HEMOGLOBIN A1C Routine 09/01/2024 10:40 AM CDT Type 2 diabetes mellitus with hyperglycemia, with long-term current use of insulin (HCC) POCT LIPID PANEL Routine 04/27/2024 12:23 PM QUITLINE COUNSELOR Hyperlipidemia, unspecified hyperlipidemia type COMPREHENSIVE METABOLIC PANEL Routine 02/14/2023 10:41 AM CDT Type 2 diabetes mellitus with hyperglycemia, with long-term current use of insulin (HCC) Type 2 diabetes mellitus without complication, without long-term current use of insulin (HCC) Hyperlipidemia, unspecified hyperlipidemia type Hypertension associated with diabetes (HCC) CVA, old, dysarthria ALBUMIN CREATININE RATIO, URINE Routine 10/22/2022 4:15 PM CDT Type 2 diabetes mellitus without complication, without long-term current use of insulin (HCC) Dyslipidemia associated with type 2 diabetes mellitus (CMS/HCC) (HCC) Hypertension associated with diabetes (HCC) CVA, old, dysarthria DEXA AXIAL SKELETON BONE DENSITY 1 OR MORE SITES Schedule Routine, Read Routine (OP Routine) 02/07/2022 11:03 AM CDT Post-menopausal from Last 3 Months or Most Recently Relevant to Health Maintenance Results * (ABNORMAL) Differential, auto (12/09/2024 2:57 PM CDT) Neutrophil abs 8.27(H) 1.50 - 6.50 K/cumm Imm gran abs 0.05 0.00 - 0.10 K/cumm [facility] Lymphocyte abs 1.47 0.80 - 3.30 K[facility] Monocyte abs 0.92(H) 0.20 - 0.80 K/cumm [facility] Eosinophil abs 0.71(H) 0.00 - 0.50 K/cumm [facility] Basophil abs 0.07 0.00 - 0.10 K/cumm [facility] Neutrophil pct 72.0 % [facility] Comment: Interpretive Data Percent cell count reference ranges are not reported, since discordance with absolute values may lead to misinterpretation of CBC data. Current Interpretive Data was last revised on 2017. Imm gran pct 0.4 % [facility] Comment: Interpretive Data Percent cell count reference ranges are not reported, since discordance with absolute values may lead to misinterpretation of CBC data. Current Interpretive Data was last revised on 2017. Lymphocyte pct 12.8 % [facility] Comment: Interpretive Data Percent cell count reference ranges are not reported, since discordance with absolute values may lead to misinterpretation of CBC data. Current Interpretive Data was last revised on 2017. Monocyte pct 8.0 % [facility] Comment: Interpretive Data Percent cell count reference ranges are not reported, since discordance with absolute values may lead to misinterpretation of CBC data. Current Interpretive Data was last revised on 2017. Eosinophil pct 6.2 % [facility] Comment: Interpretive Data Percent cell count reference ranges are not reported, since discordance with absolute values may lead to misinterpretation of CBC data. Current Interpretive Data was last revised on 2017. Basophil pct 0.6 % [facility] Comment: Interpretive Data Percent cell count reference ranges are not reported, since discordance with absolute values may lead to misinterpretation of CBC data. Current Interpretive Data was last revised on 2017. Blood 12/09/2024 2:57 PM CDT 12/09/2024 9:37 PM CDT us Kapil Nieves MD LAB BLOOD ORDERABLES Final Re sult [facility] [id number] Department of Laboratories [place], [place] [id number] * (ABNORMAL) CBC with auto differential (12/09/2024 2:57 PM CDT) WBC 11.49(H) 3.80 - 9.90 K/cumm Hgb 14.7 11.9 - 15.5 g/dL [facility] Hct 46.4(H) 35.6 - 45.5 % [facility] Plt 268 150 - 400 K/cumm [facility] MPV 10.5 9.1 - 12.3 fL [facility] RBC 4.93 3.90 - 5.20 M/cumm [facility] MCV 94.1 81.3 - 96.4 fL [facility] MCH 29.8 27.1 - 33.3 pg [facility] MCHC 31.7(L) 32.3 - 35.7 g/dL [facility] RDW CV 12.5 11.1 - 14.9 % [facility] RDW SD 43.4 35.7 - 48.1 fL [facility] NRBC abs 0.00 0.00 - 0.01 K/cumm [facility] Blood 12/09/2024 2:57 PM CDT 12/09/2024 9:37 PM CDT us Kapil Nieves MD LAB BLOOD ORDERABLES Final Re sult [facility] [address] [address] Department [place] [address] * (ABNORMAL) POCT hemoglobin A1c (09/01/2024 10:40 AM CDT) Hemoglobin A1C, POC 7.4 4.0 - 5.6 % Blood 09/01/2024 10:4 0 AM CDT us Kapil Nieves MD POINT OF CARE TEST ORDERABLES Final Result * POCT lipid panel (04/27/2024 12:23 PM QUITLINE COUNSELOR) Cholesterol, POC 0 mg/dL Comment:error in results per HDL, POC 0 mg/dL Triglycerides, POC 0 mg/dL LDL Cholesterol POC 0 mg/dL Chol/HDL Ratio, POC 0 Non-HDL Cholesterol, POC 0 mg/dL Cholesterol Total, POC 0 mg/dL Capillary blood 04/27/2024 1 2:23 PM QUITLINE COUNSELOR us Kapil Nieves MD POINT OF CARE TEST ORDERABLES Final Result * Comprehensive metabolic panel (02/14/2023 10:41 AM CDT) Glucose 86 70 - 99 mg/dL [facility] - 01 BUN 17 8 - 27 mg/dL [facility] - 01 Creatinine, Serum 0.91 0.57 - 1.00 mg/dL [facility] - 01 eGFR 65 >59 mL/min/1.73 [facility] - 01 BUN/creat ratio 19 12 - 28 [facility] - 01 Sodium 142 134 - 144 mmol/L [facility] - 01 Potassium, sr 4.4 3.5 - 5.2 mmol/L [facility] - 01 Chloride 102 96 - 106 mmol/L [facility] - 01 CO2 25 20 - 29 mmol/L [facility] - 01 Calcium 9.8 8.7 - 10.3 mg/dL [facility] - 01 Protein, sr 7.0 6.0 - 8.5 g/dL [facility] - 01 Albumin 4.4 3.8 - 4.8 g/dL [facility] - 01 Globulin, Total 2.6 1.5 - 4.5 g/dL [facility] - 01 A/G Ratio 1.7 1.2 - 2.2 [facility] - 01 Bilirubin, Total 0.5 0.0 - 1.2 mg/dL [facility] - 01 Alk phos 76 44 - 121 IU/L [facility] - 01 AST 22 0 - 40 IU/L [facility] - 01 ALT 30 0 - 32 IU/L [facility] - 01 Blood 02/14/2023 10:4 1 AM CDT 02/14/2023 Narrative [facility] - 02/15/2023 4:12 PM CDT Performed at: [address] [place] [id number] Loan Administrator: Dru Ruiz PhD, Phone: [phone] us Kapil Nieves MD LAB BLOOD ORDERABLES Final Re sult [facility] - 01 * (ABNORMAL) Albumin Creatinine Ratio, Urine (10/22/2022 4:15 PM CDT) Creatinine ur 171.8 Not Estab. mg/dL [facility] - 01 Microalbumin, ur 117.2 Not Estab. ug/mL [facility] - 01 Microalbumin/cre at ratio 68(H) 0 - 29 mg/g creat [facility] - 01 Comment: Normal: 0 - 29 Moderately increased: 30 - 300 Severely increased: >300 Urine 10/22/2022 4:15 PM CDT 10/22/2022 Narrative [facility] - 10/23/2022 1:09 PM CDT Performed at: [address], [place], [place] [id number] Loan Administrator: Dru Ruiz PhD, Phone: [phone] us Kapil Nieves MD LAB URINE ORDERABLES Final Re sult [facility] - 01 * Dexa Axial Skeleton Bone Density 1 or 2 Site (02/07/2022 11:03 AM CDT) Anatomical Region Laterality Modality Body N/A Digital Radiogra phy 02/07/2022 11:1 2 AM CDT Impressions 02/07/2022 11:12 AM CDT 1. The bone mineral density of the lumbar spine is normal. 2. The bone mineral density of the left femoral neck is moderately decreased. 3. The bone mineral density of the left total hip is mildly decreased. 4. Overall, the above findings are diagnostic of osteoporosis by WHO criteria. 5. Based on the FRAX fracture risk model, the 10-year probability for major osteoporotic fracture is 20% and that for hip fracture is 7.0%. This 10-year fracture risk estimate was calculated using the risk factors noted in the history above, along with the femoral neck bone density. FRAX is intended to help guide treatment decisions in men over age 50 and postmenopausal women with low bone mass (osteopenia). The National Osteoporosis Foundation (NOF) recommends that FDA-approved medical therapies be considered in postmenopausal women and men age 50 years and older with osteoporosis and those with low bone mass whose 10-year fracture probability by FRAX is >= 20% for major osteoporotic fracture or >= 3% for hip fracture. However, all treatment decisions require clinical judgment and consideration of individual patient factors, including patient preferences, comorbidities, previous drug use, risk factors not captured in the FRAX model (e.g., frailty, falls, vitamin D deficiency, increased bone turnover, interval significant decline in bone density) and possible under- or overestimation of fracture risk by FRAX. General comments regarding interpretation of bone density measurements: A) In children, premenopausal woman and males under age 50 not at increased risk for fractures only Z-scores, not T-scores are used to indicate risk. A Z-score above -2.0 is defined as within the expected range for age and Z-score at or less than -2.0 is below the expected range for age. A Z-score below the expected range for age in a patient with recent fractures and/or chronic corticosteroid treatment is consistent with a diagnosis of osteoporosis. B) In post menopausal women and males over 50, comparison of the measured bone mineral density with the average value in young normal subjects (the T-score) has been found to be useful in assessing fracture risk. Fracture risk approximately doubles for each 1.0 standard deviation (SD) in individual's hip or spine bone mineral density is below the average value of young normal subjects. The World Health Organization (WHO) has defined T-scores of -1.0 to -2.5 as diagnostic of low bone mass (OSTEOPENIA), and T-scores of -2.5 or lower to be diagnostic of OSTEOPOROSIS, based on the site of lowest bone density. Note that there will be a change in reporting format and reference databases as patients move from the younger population (group A) to the older population (group B) The National Osteoporosis Foundation (www.nof.org) recommends adequate intake of calcium and vitamin D and regular weight-bearing exercise in all patients. They recommend pharmacologic treatment in postmenopausal women and men age 50 and older presenting with any of the followin) Osteoporosis, after appropriate evaluation to exclude secondary causes. 2) A hip or vertebral (clinical or radiographic) fracture, regardless of the bone density. 3) Low bone mass (Osteopenia) and one or more of: other prior fractures, secondary causes associated with high risk of fracture (such as glucocorticoid use or total immobilization), or computed high risk of fracture (10-yr probability of hip fracture >= 3% or a 10-yr probability of any major osteoporosis-related fracture >= 20% based on the [place].-adapted WHO algorithm), available at http://www.shef.ac.uk/FRAX). The radiology attending physician has personally reviewed this study, and had reviewed and/or edited this written report and agrees with it. Electronically signed by: Albert Su M.D. Narrative 02/07/2022 11:12 AM CDT BONE DENSITOMETRY OF THE SPINE AND HIP DATE OF STUDY: 02/07/2022 HISTORY: 76-year-old postmenopausal woman with no recent fractures. She is not being treated with antiresorptive medications. Evaluate bone mineral density. Additional risk factors for fracture: increased risk of secondary osteoporosis. FINDINGS (SPINE): The bone mineral density of L1-L4 was assessed by dual-energy x-ray absorptiometry. The average bone mineral density within this region is 1.031 gm/sq-cm. This is 2.3 standard deviations above the mean of the average bone mineral density for age- and gender-matched subjects (the Z-score). It is 0.1 standard deviations below the mean peak bone mineral density in young adults (the T-score). FINDINGS (FEMORAL NECK): The bone mineral density of the left femoral neck was assessed by dual-energy x-ray absorptiometry. The average bone mineral density within the femoral neck region is 0.536 gm/sq-cm. This is 0.7 standard deviations below the mean of the average bone mineral density for age- and gender-matched subjects (the Z-score). It is 2.8 standard deviations below the mean peak bone mineral density in young adults (the T-score). FINDINGS (TOTAL HIP): The bone mineral density of the left hip was assessed by dual-energy x-ray absorptiometry. The average bone mineral density within the total hip region is 0.724 gm/sq-cm. This is 0.1 standard deviations above the mean of the average bone mineral density for age- and gender-matched subjects (the Z-score). It is 1.8 standard deviations below the mean peak bone mineral density in young adults (the T-score). SUMMARY OF CURRENT RESULTS: Region BMD T-score Z-score AP Spine (L1-L4) 1.031 -0.1 2.3 Femoral Neck (Left) 0.536 -2.8 -0.7 Total Hip (Left) 0.724 -1.8 0.1 Procedure Note Albert Su MD - 02/07/2022 BONE DENSITOMETRY OF THE SPINE AND HIP DATE OF STUDY: 02/07/2022 HISTORY: 76-year-old postmenopausal woman with no recent fractures. She is not being treated with antiresorptive medications. Evaluate bone mineral density. Additional risk factors for fracture: increased risk of secondary osteoporosis. FINDINGS (SPINE): The bone mineral density of L1-L4 was assessed by dual-energy x-ray absorptiometry. The average bone mineral density within this region is 1.031 gm/sq-cm. This is 2.3 standard deviations above the mean of the average bone mineral density for age- and gender-matched subjects (the Z-score). It is 0.1 standard deviations below the mean peak bone mineral density in young adults (the T-score). FINDINGS (FEMORAL NECK): The bone mineral density of the left femoral neck was assessed by dual-energy x-ray absorptiometry. The average bone mineral density within the femoral neck region is 0.536 gm/sq-cm. This is 0.7 standard deviations below the mean of the average bone mineral density for age- and gender-matched subjects (the Z-score). It is 2.8 standard deviations below the mean peak bone mineral density in young adults (the T-score). FINDINGS (TOTAL HIP): The bone mineral density of the left hip was assessed by dual-energy x-ray absorptiometry. The average bone mineral density within the total hip region is 0.724 gm/sq-cm. This is 0.1 standard deviations above the mean of the average bone mineral density for age- and gender-matched subjects (the Z-score). It is 1.8 standard deviations below the mean peak bone mineral density in young adults (the T-score). SUMMARY OF CURRENT RESULTS: Region BMD T-score Z-score AP Spine (L1-L4) 1.031 -0.1 2.3 Femoral Neck (Left) 0.536 -2.8 -0.7 Total Hip (Left) 0.724 -1.8 0.1 IMPRESSION: 1. The bone mineral density of the lumbar spine is normal. 2. The bone mineral density of the left femoral neck is moderately decreased. 3. The bone mineral density of the left total hip is mildly decreased. 4. Overall, the above findings are diagnostic of osteoporosis by WHO criteria. 5. Based on the FRAX fracture risk model, the 10-year probability for major osteoporotic fracture is 20% and that for hip fracture is 7.0%. This 10-year fracture risk estimate was calculated using the risk factors noted in the history above, along with the femoral neck bone density. FRAX is intended to help guide treatment decisions in men over age 50 and postmenopausal women with low bone mass (osteopenia). The National Osteoporosis Foundation (NOF) recommends that FDA-approved medical therapies be considered in postmenopausal women and men age 50 years and older with osteoporosis and those with low bone mass whose 10-year fracture probability by FRAX is >= 20% for major osteoporotic fracture or >= 3% for hip fracture. However, all treatment decisions require clinical judgment and consideration of individual patient factors, including patient preferences, comorbidities, previous drug use, risk factors not captured in the FRAX model (e.g., frailty, falls, vitamin D deficiency, increased bone turnover, interval significant decline in bone density) and possible under- or overestimation of fracture risk by FRAX. General comments regarding interpretation of bone density measurements: A) In children, premenopausal woman and males under age 50 not at increased risk for fractures only Z-scores, not T-scores are used to indicate risk. A Z-score above -2.0 is defined as within the expected range for age and Z-score at or less than -2.0 is below the expected range for age. A Z-score below the expected range for age in a patient with recent fractures and/or chronic corticosteroid treatment is consistent with a diagnosis of osteoporosis. B) In post menopausal women and males over 50, comparison of the measured bone mineral density with the average value in young normal subjects (the T-score) has been found to be useful in assessing fracture risk. Fracture risk approximately doubles for each 1.0 standard deviation (SD) in individual's hip or spine bone mineral density is below the average value of young normal subjects. The World Health Organization (WHO) has defined T-scores of -1.0 to -2.5 as diagnostic of low bone mass (OSTEOPENIA), and T-scores of -2.5 or lower to be diagnostic of OSTEOPOROSIS, based on the site of lowest bone density. Note that there will be a change in reporting format and reference databases as patients move from the younger population (group A) to the older population (group B) The National Osteoporosis Foundation (www.nof.org) recommends adequate intake of calcium and vitamin D and regular weight-bearing exercise in all patients. They recommend pharmacologic treatment in postmenopausal women and men age 50 and older presenting with any of the followin) Osteoporosis, after appropriate evaluation to exclude secondary causes. 2) A hip or vertebral (clinical or radiographic) fracture, regardless of the bone density. 3) Low bone mass (Osteopenia) and one or more of: other prior fractures, secondary causes associated with high risk of fracture (such as glucocorticoid use or total immobilization), or computed high risk of fracture (10-yr probability of hip fracture >= 3% or a 10-yr probability of any major osteoporosis-related fracture >= 20% based on the [place].-adapted WHO algorithm), available at http://www.shef.ac.uk/FRAX). The radiology attending physician has personally reviewed this study, and had reviewed and/or edited this written report and agrees with it. Electronically signed by: Albert Su M.D. Kapil AVILES DXA PROCEDURES Final Resu lt from Last 3 Months or Most Recently Relevant to Health Maintenance Insurance MEDIC[place] [address] [place] [address] [facility] [address] [facility] [place] MEDICARE [facility]ILROAD [facility] [place] [facility] [place] Care Teams Cinema Or Theatre Manager Relationship Specialty Start Date End Date Kapil Nieves MD PCP - General 09/04/16
--- OUTSIDE RECORDS SUMMARY | 2025-01-02 20:45 | XMS_ITS | Referral Summary ---
Author Organization [facility] Address [address] [place] [address] Care Team Providers Care Healthcare Interpreter Name Role Phone Kapil Nieves MD Primary Care Provider Encounters Date Type Department Care Team Description 12/14/2024 11:45 AM CDT Office Visit [facility] Orthopaedic Surgery [address] [place] [address] Medical Office Building [address] [place] [address] Lindsay More PA Primary osteoarthritis of left knee (Primary Dx) 12/10/2024 Results Follow-Up [facility] [address] [place] [address] [address] [place] [address] Kapil Nieves MD CBC with auto differential, Differential, auto 12/09/2024 2:57 PM CDT - 12/09/2024 11:59 PM CDT Hospital Encounter [address] [address] Rash; Itching Discharge Disposition: Discharge to home or self care 12/09/2024 3:00 PM CDT Lab [facility] Outpatient Lab at [address] [address] 12/09/2024 Telephone [facility] [address] [place] [address] [address] [place] [address] Kapil Nieves MD from Last 3 Months Allergies Active Allergy Reactions Criticality Noted Date [...] hyperglycemia, with long-term current use of insulin ([facility]) ADMINISTER 30 UNITS UNDER THE SKIN DAILY [...] Loop Recorder. Dx; Cryptogenic Stroke. DOI 06/30/2019- [facility]. Hand[employer] remote home monitoring. Paroxysmal SVT (supraventricular tachycardia) CVA, old, dysarthria 03/25/2019 Assessment & Plan (09/01/2024 11:16 AM CDT): Stable, doing well Hypertension associated with diabetes 03/25/2019 Assessment & Plan (09/01/2024 11:16 AM CDT): Bp at target, continue medication for target directed therapy Knee pain 09/03/2016 Resolved Problems Problem Noted Date Diagnosed Date Resolved Date Tachycardia-bradycardia 03/25/2019 022 02/2024 Dyslipidemia associated with type 2 diabetes mellitus ([facility]) 03/25/2019 11/22/2023 Immunizations Immunization Administration Dates Next Due Influenza, Quad, Adjuvantated, Intramuscular 02/2023,05/02/2022 Influenza, Quadrivalent, Hig h Dose, Preservative Free, Intrr 03/07/2021,04/26/2020 Influenza, Trivalent, Adjuvanted, Intramuscular 04/23/2024 Influenza, Trivalent, High D ose, Split, Preservative Free, Intramuscular 05/26/2019,03/30/2018 Social History Tobacco Use Types Packs/Day Years [...] on file Legal Sex Female 6:20 PM BUSINESS OWNER/ENGINEER Gender Identity Not on file Sexual Orientation Not on file 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 Not on file Not on file Last Filed Vital Signs Vital Sign Reading Time Taken Comments Blood Pressure 154/83 09/01/2024 10:39 AM CDT Pulse 91 09/01/2024 10:39 AM CDT Temperature 36.7 C (98 F) 05/03/2023 1:51 PM BUSINESS OWNER/ENGINEER Respiratory Rate 16 05/03/2023 1:51 PM BUSINESS OWNER/ENGINEER Oxygen Saturation 97% 05/03/2023 1:51 PM BUSINESS OWNER/ENGINEER Inhaled Oxygen Concentration - - Weight 68 kg (150 lb) 09/01/2024 10:39 AM CDT Height 157.5 cm (5' 2) 04/27/2024 12:17 PM BUSINESS OWNER/ENGINEER Body Mass Index 27.44 04/27/2024 12:17 PM BUSINESS OWNER/ENGINEER Plan of Treatment Not on file Procedures Procedure Name Priority Date/Time Associated Diagnosis Comments DIFFERENTIAL AUTO Routine 12/09/2024 2:5 7 PM CDT Rash Itching CBC WITH AUTO DIFFERENTIAL Routine 12/09/2024 2:57 PM CDT Rash Itching POCT HEMOGLOBIN A1C Routine 09/01/2024 10:40 AM CDT Type 2 diabetes mellitus with hyperglycemia, with long-term current use of insulin (HCC) POCT LIPID PANEL Routine 04/27/2024 12:23 PM BUSINESS OWNER/ENGINEER Hyperlipidemia, unspecified hyperlipidemia type COMPREHENSIVE METABOLIC PANEL [...] Lymphocyte abs 1.47 0.80 - 3.30 K/cumm [facility] Monocyte abs 0.92(H) 0.20 - 0.80 K/cumm [facility] Eosinophil abs 0.71(H) 0.00 - 0.50 K/cumm [facility] Basophil abs 0.07 0.00 - 0.10 K/cumm [facility] Neutrophil pct 72.0 % [facility] Comment: Interpretive Data Percent cell count reference ranges are not reported, since discordance with absolute values may lead to misinterpretation of CBC data. Current Interpretive Data was last revised on 2017. Imm gran pct 0.4 % [facility] Comment: Interpretive Data Percent cell count reference ranges are not reported, since discordance with absolute values may lead to misinterpretation of CBC data. Current Interpretive Data was last revised on 2017. Lymphocyte pct 12.8 % [facility] Comment: Interpretive Data Percent cell count reference ranges are not reported, since discordance with absolute values may lead to misinterpretation of CBC data. Current Interpretive Data was last revised on 2017. Monocyte pct 8.0 % [facility] Comment: Interpretive Data Percent cell count reference ranges are not reported, since discordance with absolute values may lead to misinterpretation of CBC data. Current Interpretive Data was last revised on 2017. Eosinophil pct 6.2 % [facility] Comment: Interpretive Data Percent cell count reference ranges are not reported, since discordance with absolute values may lead to misinterpretation of CBC data. Current Interpretive Data was last revised on 2017. Basophil pct 0.6 % [facility] Comment: Interpretive Data Percent cell count reference ranges are not reported, since discordance with absolute values may lead to misinterpretation of CBC data. Current Interpretive Data was last revised on 2017. Blood 12/09/2024 2:57 PM CDT 12/09/2024 9:37 PM CDT us Kapil Nieves MD LAB BLOOD ORDERABLES Final Re sult [facility] [address] Department [place] [address] * (ABNORMAL) CBC with auto differential (12/09/2024 2:57 PM CDT) WBC 11.49(H) 3.80 - 9.90 K/cumm Hgb 14.7 11.9 - 15.5 g/dL [facility] Hct 46.4(H) 35.6 - 45.5 % [facility] Plt 268 150 - 400 K/cumm [facility] MPV 10.5 9.1 - 12.3 fL [facility] RBC 4.93 3.90 - 5.20 M/cumm [facility] MCV 94.1 81.3 - 96.4 fL [facility] MCH 29.8 27.1 - 33.3 pg [facility] MCHC 31.7(L) 32.3 - 35.7 g/dL [facility] RDW CV 12.5 11.1 - 14.9 % [facility] RDW SD 43.4 35.7 - 48.1 fL [facility] NRBC abs 0.00 0.00 - 0.01 K/cumm [facility] Blood 12/09/2024 2:57 PM CDT 12/09/2024 9:37 PM CDT us Kapil Nieves MD LAB BLOOD ORDERABLES Final Re sult [facility] [address] [address] Department [place] [address] * (ABNORMAL) POCT hemoglobin A1c (09/01/2024 10:40 AM CDT) Hemoglobin A1C, POC 7.4 4.0 - 5.6 % Blood 09/01/2024 10:4 0 AM CDT us Kapil Nieves MD POINT OF CARE TEST ORDERABLES Final Result * POCT lipid panel (04/27/2024 12:23 PM BUSINESS OWNER/ENGINEER) Cholesterol, POC 0 mg/dL Comment:error in results per HDL, POC 0 mg/dL Triglycerides, POC 0 mg/dL LDL Cholesterol POC 0 mg/dL Chol/HDL Ratio, POC 0 Non-HDL Cholesterol, POC 0 mg/dL Cholesterol Total, POC 0 mg/dL Capillary blood 04/27/2024 1 2:23 PM BUSINESS OWNER/ENGINEER us Kapil Nieves MD POINT OF CARE [...] - 02/15/2023 4:12 PM CDT Performed at: [address] [place] [id number] Roving Frame Tender: Dru Ruiz PhD, Phone: [phone] us Kapil Nieves MD LAB BLOOD ORDERABLES Final Re sult [facility] - 01 * (ABNORMAL) Albumin Creatinine [...] - 10/23/2022 1:09 PM CDT Performed at: - [address] [id number] Roving Frame Tender: Dru Ruiz PhD, Phone: [phone] us Kapil Nieves MD LAB URINE ORDERABLES Final [facility] - * Dexa Axial Skeleton Bone Density 1 [...] Electronically signed by: Albert Su M.D. Kapil Nieves MD IMG DXA PROCEDURES Final Resu lt from Last 3 Months or Most Recently Relevant to Health Maintenance Insurance MEDICARE [facility]ILF[facility]cal[facility] MEDICARE RAILROAD [facility] MEDICARE RAILROAD [facility] MEDICARE RAILROAD [facility] Care Teams Healthcare Interpreter Relationship Specialty Start Date End Date Kapil Nieves MD PCP - General 09/04/16
--- OUTSIDE RECORDS SUMMARY | 2025-01-02 20:45 | XMS_ITS | Encounter Summary ---
Author Organization [facility] Address [address] [facility] [place] [address] Care Team Providers Care Ornament Stapler Name Role Phone Kapil Nieves MD Primary Care Provider [phone] Encounter Details Date Type Department Care Team (Late Contact Info) Description 02/18/2018 Lab Requisition [facility] Lab [address] [place] [address] Gabo Burt MD [address] [address] Social History Tobacco Use Types Packs/Day Years Used Date Smoking Tobacco: Never Assessed Comments Unknown Sex and Gender Information Value Date Recorded Sex Assigned at Not on file Legal Sex Female 8:39 AM CDT Gender Identity Not on file Sexual Orientation Not on file documented as of this encounter Plan of Treatment Upcoming Encounters Date Type Department Care Team (Late Contact Info) Description 02/17/2025 3:00 PM CDT Office Visit [facility] - Dermatology [address] [place] [address] Dalia Melendez MD [address] [facility] [address] [place] [address] documented as of this encounter Procedures Procedure Name Priority Date/Time Associated Diagnosis Comments DERMATOPATHOLOGY Routine 02/17/2018 12:0 0 AM CDT documented in this encounter Results * DERMATOPATHOLOGY (02/17/2018 12:00 AM CDT) Case Report Dermatopathology Report Case: [id number] Authorizing Provider: Gabo Burt MD Collected: 02/17/2018 12:00 AM Pathologist: Savannah Pham MD Received: 02/18/2018 09:01 AM Specimen: Skin, left upper arm 1:40 PM CDT DERMATOPATHOLOGY LABORATORY Final Diagnosis Specimen A. SKIN, left upper arm: NEUROFIBROMA (D36.10) 1:40 PM CDT DERMATOPATHOLOGY LABORATORY at 1340 CDT Clinical History Nevus with hx of irritation R/O atypia. 1:40 PM CDT DERMATOPATHOLOGY LABORATORY Gross Description Specimen A: Received is one formalin filled container labeled with the patient's name and designated A. The specimen consists of a shave biopsy measuring [id number]. Jar 0. 1:40 PM CDT DERMATOPATHOLOGY LABORATORY Microscopic Description Specimen A. SKIN, left upper arm: Sections show a proliferation of spindled and S-shaped cells within the dermis. The stromal collagen is delicate and pale. 1:40 PM CDT DERMATOPATHOLOGY LABORATORY Disclaimer An external and internal positive and negative controls are appropriate for the histochemical, immunohistochemical and immunofluorescence stain(s) in this case (if any), except where stated explicitly. The performance characteristics of the stain(s) cited in this report were developed and its performance characteristic determined by the Dermatopathology Laboratory at [facility]. These tests need not be, and therefore are not, approved by the [place] Food and Drug Administration. The tests are used for clinical purposes. Billing Codes Specimen Charges Stain Charges 39182 1 8 1:40 PM CDT DERMATOPATHOLOGY LABORATORY Embedded Images 1:40 PM CDT DERMATOPATHOLOGY LABORATORY Pathology/Cytolog y TISSUE SPECIMEN FROM SKIN / Unknown 02/17/2018 02/18/2018 9:01 AM CDT us Gabo Burt MD LAB - PATHOLOGY/CYTOLOGY ORD ERABLES Final Result DERMATOPATHOLOGY LABORATORY [facility] - Department of Dermatology [address] [place] [address] [address] [phone] documented in this encounter Visit Diagnoses Not on filedocumented in this encounter Care Teams Ornament Stapler Relationship Specialty Start Date End Date Kapil Nieves MD [address] [address] PCP - General Internal Medicine 09/25/23 documented as of this encounter
--- OUTSIDE RECORDS SUMMARY | 2025-01-02 20:45 | XMS_ITS | Clinical Summary ---
Author Organization [facility] Address [address] [place] [address] Care Team Providers Care University Services Program Associate Name Role Phone None, Provider MD Primary Care Provider Unavaila ble Allergies Active Allergy Reactions Criticality Noted Date Comments Metformin Diarrhea 01/16/2021 Medications aspirin EC 81 MG tablet Take 81 mg by mouth daily. Active amLODIPine 10 MG tablet Take 10 mg by mouth daily. Active clopidogrel 75 MG tablet Take 75 mg by mouth daily. Active escitalopram (LEXAPRO) 5 MG tablet Take 5 mg by mouth daily. Active glimepiride 1 MG tablet Take 5 mg by mouth every morning before breakfast. Active SITagliptin 50 MG tablet Take 50 mg by mouth daily. Active losartan 100 MG tablet Take 100 mg by mouth daily. Active rosuvastatin 10 MG tablet Take 10 mg by mouth nightly at bedtime. Active Social History Tobacco Use Types Packs/Day Years Used Date Smoking Tobacco: Never Smokeless Tobacco: Never Alcohol Use Standard Drinks/Week Comments Never 0 (1 standard drink = 0.6 oz pur e alcohol) AUDIT-C Answer Date Recorded Q1: How often do you have a drink containing alc ohol? Never 01/10/2021 Average Number of Drinks Not on file 021 Frequency of Binge Drinking Not on file 12/23 Comments No Sex and Gender Information Value Date Recorded Sex Assigned at Not on file Legal Sex Female 4:53 PM CDT Gender Identity Not on file Sexual Orientation Not on file Last Filed Vital Signs Vital Sign Reading Time Taken Comments Blood Pressure 165/90 02/13/2021 10:03 AM CDT Pulse 91 02/13/2021 10:03 AM CDT Temperature 36.7 C (98 F) 02/13/2021 8:00 AM CDT Respiratory Rate 16 02/13/2021 10:03 AM CDT Oxygen Saturation 97% 02/13/2021 10:03 AM CDT Inhaled Oxygen Concentration - - Weight 63.5 kg (140 lb) 02/07/2021 4:03 PM CDT Height 157.5 cm (5' 2) 02/07/2021 4:03 PM CDT Body Mass Index 25.61 02/07/2021 4:03 PM CDT Plan of Treatment Health Maintenance Due Date Last Done Comments Hepatitis C 1963 DTaP, Tdap and Td Vaccines ( 1 - Tdap) 1964 Pneumococcal Vaccine: 50+ Years (1 of 1 - PCV) 1995 Zoster Vaccines (1 of 2) 1995 Annual Medicare Wellness Visit 2010 Dexa Scan (General) 2010 RSV Immunization or 60+ Years (1 - 1-dose 75+ series) 2020 COVID-19 Vaccine (3 2023-2 5 season) 2024 09/09/2020, 08/19/2020 Meningococcal B Vaccine Aged Out No l onger eligible based on patient's age to complete this topic Meningococcal Vaccine Aged Out No arjun jorge eligible based on patient's age to complete this topic RSV Immunizations Under 20 Months Aged Out No longer eligible b ased on patient's age to complete this topic Medical Devices Implanted Type Area Director Of Individual Giving Device Identifier Shelf Expiration Date Model / Serial / Lot Iol Shravan Precision Zcb00 - [id number] Implanted:Qty: 1 on 01/16/2021 by Zaki Roy MD at [facility] Lens Left: Eye [employer] 08/12/2023 ZCB00 / [id number] / Iol Shravan [employer]ision Zcb00 - [id number] Implanted:Qty: 1 on 02/13/2021 by Zaki Roy MD at [facility] Lens Right: Eye [employer] 04/20/2024 ZCB00 / [id number] / Insurance [facility] RAILROAD MEDICARE Care Teams University Services Program Associate Relationship Specialty Start Date End Date None, Provider, PCP - General 01/16/21
[2025-01-02 20:47] VITALS: BP 161/90; PULSE 98; RESP 19; TEMP 36.4; O2SAT 97
--- OUTSIDE RECORDS SUMMARY | 2025-01-02 21:37 | XMS_ITS | Clinical Summary ---
Author Organization [facility] Address [address] [place] [address] Care Team Providers Care Ditch Cleaner Name Role Phone Kapil Nieves MD Primary Care Provider Source Comments [facility],non-owned Affiliates and Associated Physician Practices is amultiple site organization consisting of ambulatory clinics and hospital sitesin [place], [place], [place] and [place]. This disclosure is being madepursuant to the Care Everywhere program and may not contain all information available regarding this patient. Last updated 18.[facility] Allergies Active Allergy Reactions Criticality Noted Date [...] implantable loop record er 06/30/2019 Overview (08/13/2024): [employer]tronic Implantable Loop Recorder. Dx; Cryptogenic Stroke. DOI 06/30/2019- [employer]. [employer] remote home monitoring. CVA, old, dysarthria 03/25/2019 [...] Description 02/17/2025 3:00 PM CDT Office Visit [facility] - Dermatology [address] [place] [address], [place] [phone] Dalia Melendez MD [address] [place] [address] [address] [place] [address] Health Maintenance Due Date Last [...] age to complete this topic Insurance MEDICARE [facility] Address: [address] [address] [place] [address] Care Teams Ditch Cleaner Relationship Specialty Start Date End Date Kapil Nieves MD [address] [place] [address] PCP - General Internal Medicine 09/25/23
--- OUTSIDE RECORDS SUMMARY | 2025-01-02 21:37 | XMS_ITS | Encounter Summary ---
Author Organization [facility] Address [address] [facility] [place] [address] Care Team Providers Care Glass Cut Off Tender Name Role Phone Kapil Nieves MD Primary Care Provider [phone] Reason for Visit * Reason Onset Date Comments Nurse Only 04/19/2022 Future Appointment 04/19/2022 Encounter Details Date Type Department Care Team (Late st Contact Info) Description 04/19/2022 Telephone [facility] [address] [place] [phone] Gabo Burt MD [facility] [address] [address] Nurse Only; Future Appointment Social [...] Office Visit [facility] - Dermatology [address] [place] [phone] Dalia Melendez MD [address] [place] [address] [address] [place] [address] documented as of this encounter Visit Diagnoses Not on filedocumented in this encounter Care Teams Glass Cut Off Tender Relationship Specialty Start Date End Date Kapil Nieves MD [address] [address] PCP - General Internal Medicine 09/25/23 documented as of this encounter
--- OUTSIDE RECORDS SUMMARY | 2025-01-02 21:37 | XMS_ITS | Referral Summary ---
Author Organization [facility] Address [address] [place] [address] Care Team Providers Care Dust Operator Name Role Phone Kapil Nieves MD Primary Care Provider [phone] Encounters Date Type Department Care Team Description 12/14/2024 11:45 AM CDT Office Visit [facility] Orthopaedic Surgery [address] [place] [address] Medical Office Building [address] [place] [address] Lindsay More PA Primary osteoarthritis of left knee (Primary Dx) 12/10/2024 Results Follow-Up [facility] [address] [place] [address] [address] [place] [address] Kapil Nieves MD CBC with auto differential, Differential, auto 12/09/2024 2:57 PM CDT - 12/09/2024 11:59 PM CDT Hospital Encounter [address] [address] Rash; Itching Discharge Disposition: Discharge to home or self care 12/09/2024 3:[address] [facility] Outpatient Lab at [address] [address] 12/09/2024 Telephone [facility] [address] [place] [address] [address] [place] [address] Kapil Nieves MD from Last [...] hyperglycemia, with long-term current use of insulin ([facility]) ADMINISTER 30 UNITS UNDER THE SKIN DAILY [...] Loop Recorder. Dx; Cryptogenic Stroke. DOI 06/30/2019- [facility]. [employer] remote home monitoring. 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 Not on file Not on file Last Filed Vital Signs Vital Sign Reading Time Taken Comments Blood Pressure 154/83 09/01/2024 10:39 AM CDT Pulse 91 09/01/2024 10:39 AM CDT Temperature 36.7 C (98 F) 05/03/2023 1:51 PM OPTICAL ENGINEER Respiratory Rate 16 05/03/2023 1:51 PM OPTICAL ENGINEER Oxygen Saturation 97% 05/03/2023 1:51 PM OPTICAL ENGINEER Inhaled Oxygen Concentration - - Weight 68 kg (150 lb) 09/01/2024 10:39 AM CDT Height 157.5 cm (5' 2) 04/27/2024 12:17 PM OPTICAL ENGINEER Body Mass Index 27.44 04/27/2024 12:17 PM OPTICAL ENGINEER Plan of Treatment Not on file Procedures Procedure Name Priority Date/Time Associated Diagnosis Comments DIFFERENTIAL AUTO Routine 12/09/2024 2:5 7 PM CDT Rash Itching CBC WITH AUTO DIFFERENTIAL Routine 12/09/2024 2:57 PM CDT Rash Itching POCT HEMOGLOBIN A1C Routine 09/01/2024 10:40 AM CDT Type 2 diabetes mellitus with hyperglycemia, with long-term current use of insulin (HCC) POCT LIPID PANEL Routine 04/27/2024 12:23 PM OPTICAL ENGINEER Hyperlipidemia, unspecified hyperlipidemia type COMPREHENSIVE METABOLIC PANEL [...] revised on 2017. Lymphocyte pct 12.8 % [facility] Comment: Interpretive Data Percent cell count reference ranges are not reported, since discordance with absolute values may lead to misinterpretation of CBC data. Current Interpretive Data was last revised on 2017. Monocyte pct 8.0 % [facility] Comment: Interpretive Data Percent cell count reference ranges are not reported, since discordance with absolute values may lead to misinterpretation of CBC data. Current Interpretive Data was last revised on 2017. Eosinophil pct 6.2 % [facility] Comment: Interpretive Data Percent cell count reference ranges are not reported, since discordance with absolute values may lead to misinterpretation of CBC data. Current Interpretive Data was last revised on 2017. Basophil pct 0.6 % [facility] Comment: Interpretive Data Percent cell count reference ranges are not reported, since discordance with absolute values may lead to misinterpretation of CBC data. Current Interpretive Data was last revised on 2017. Blood 12/09/2024 2:57 PM CDT 12/09/2024 9:37 PM CDT us Kapil Nieves MD LAB BLOOD ORDERABLES Final Re sult [facility] [address] Department [place] [address] * (ABNORMAL) CBC with auto differential (12/09/2024 2:57 PM CDT) WBC 11.49(H) 3.80 - 9.90 K/cumm Hgb 14.7 11.9 - 15.5 g/dL [facility] Hct 46.4(H) 35.6 - 45.5 % [facility] Plt 268 150 - 400 K/cumm [facility] MPV 10.5 9.1 - 12.3 fL [facility] RBC 4.93 3.90 - 5.20 M/cumm [facility] MCV 94.1 81.3 - 96.4 fL [facility] MCH 29.8 27.1 - 33.3 pg [facility] MCHC 31.7(L) 32.3 - 35.7 g/dL [facility] RDW CV 12.5 11.1 - 14.9 % [facility] RDW SD 43.4 35.7 - 48.1 fL [facility] NRBC abs 0.00 0.00 - 0.01 K/cumm [facility] Blood 12/09/2024 2:57 PM CDT 12/09/2024 9:37 PM CDT us Kapil Nieves MD LAB BLOOD ORDERABLES Final Re sult [facility] [address] Department [place] [address] * (ABNORMAL) POCT hemoglobin A1c (09/01/2024 10:40 AM CDT) Hemoglobin A1C, POC 7.4 4.0 - 5.6 % Blood 09/01/2024 10:4 0 AM CDT us Kapil Nieves MD POINT OF CARE TEST ORDERABLES Final Result * POCT lipid panel (04/27/2024 12:23 PM OPTICAL ENGINEER) Cholesterol, POC 0 mg/dL Comment:error in results per HDL, POC 0 mg/dL Triglycerides, POC 0 mg/dL LDL Cholesterol POC 0 mg/dL Chol/HDL Ratio, POC 0 Non-HDL Cholesterol, POC 0 mg/dL Cholesterol Total, POC 0 mg/dL Capillary blood 04/27/2024 1 2:23 PM OPTICAL ENGINEER us Kapil Nieves MD POINT OF CARE [...] - 02/15/2023 4:12 PM CDT Performed at: [address] [place] [id number] Veterinary Radiologist: Dru Ruiz PhD, Phone: [phone] us Kapil Nieves MD LAB BLOOD ORDERABLES [...] 10/23/2022 1:09 PM CDT Performed at: - [address] [id number] Veterinary Radiologist: Dru Ruiz PhD, Phone: [phone] us Kapil Nieves MD LAB URINE ORDERABLES Final Re s[facility] - * Dexa Axial Skeleton Bone [...] Recently Relevant to Health Maintenance Insurance MEDICARE RAILOgone [facility] MEDICARE RAILROAD [facility] MEDICARE RAILROAD [facility] MEDICARE RAILROAD [facility] Care Teams Dust Operator Relationship Specialty Start Date End Date Kapil Nieves MD PCP - General 09/04/16
--- OUTSIDE RECORDS SUMMARY | 2025-01-02 21:37 | XMS_ITS | Clinical Summary ---
Author Organization [facility] Address [address] [address] Care Team Providers Care Director Of Business Operations Name Role Phone Kapil Nieves MD Primary Care Provider [phone] Allergies Active Allergy Reactions Criticality Noted Date [...] Loop Recorder. 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 [employer] remote home monitoring. Paroxysmal SVT (supraventricular tachycardia) [...] Description 12/14/2024 11:45 AM CDT Office Visit [facility] Orthopaedic Surgery [address] [facility] Medical Office Building [address] [place] [address] Lindsay More PA Primary osteoarthritis of left knee (Primary Dx) 12/10/2024 Results Follow-Up [facility] [address] [place] [address] [address] [place] [address] Kapil Nieves MD CBC with auto differential, Differential, auto 12/09/2024 3:[address] 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 Not on file Not on file Obstetrics History Last Filed Vital Signs Vital Sign Reading Time Taken Comments Blood Pressure 154/83 09/01/2024 10:39 AM CDT Pulse 91 09/01/2024 10:39 AM CDT Temperature 36.7 C (98 F) 05/03/2023 1:51 PM PLANT CONTROL OPERATOR Respiratory Rate 16 05/03/2023 1:51 PM PLANT CONTROL OPERATOR Oxygen Saturation 97% 05/03/2023 1:51 PM PLANT CONTROL OPERATOR Inhaled Oxygen Concentration - - Weight 68 kg (150 lb) 09/01/2024 10:39 AM CDT Height 157.5 cm (5' 2) 04/27/2024 12:17 PM PLANT CONTROL OPERATOR Body Mass Index 27.44 04/27/2024 12:17 PM PLANT CONTROL OPERATOR Plan of Treatment Health Maintenance Due Date [...] POCT LIPID PANEL Routine 04/27/2024 12:23 PM PLANT CONTROL OPERATOR Hyperlipidemia, unspecified hyperlipidemia type COMPREHENSIVE METABOLIC PANEL [...] Lymphocyte abs 1.47 0.80 - 3.30 K/cumm [facility] Monocyte abs 0.92(H) 0.20 - 0.80 K/cumm [facility] Eosinophil abs 0.71(H) 0.00 - 0.50 K/cumm [facility] Basophil abs 0.07 0.00 - 0.10 K/cumm [facility] Neutrophil pct 72.0 % [facility] Comment: Interpretive Data Percent cell count reference ranges are not reported, since discordance with absolute values may lead to misinterpretation of CBC data. Current Interpretive Data was last revised on 2017. Imm gran pct 0.4 % [facility] Comment: Interpretive Data Percent cell count reference ranges are not reported, since discordance with absolute values may lead to misinterpretation of CBC data. Current Interpretive Data was last revised on 2017. Lymphocyte pct 12.8 % [facility] Comment: Interpretive Data Percent cell count reference ranges are not reported, since discordance with absolute values may lead to misinterpretation of CBC data. Current Interpretive Data was last revised on 2017. Monocyte pct 8.0 % [facility] Comment: Interpretive Data Percent cell count reference ranges are not reported, since discordance with absolute values may lead to misinterpretation of CBC data. Current Interpretive Data was last revised on 2017. Eosinophil pct 6.2 % [facility] Comment: Interpretive Data Percent cell count reference ranges are not reported, since discordance with absolute values may lead to misinterpretation of CBC data. Current Interpretive Data was last revised on 2017. Basophil pct 0.6 % [facility] Comment: Interpretive Data Percent cell count reference ranges are not reported, since discordance with absolute values may lead to misinterpretation of CBC data. Current Interpretive Data was last revised on 2017. Blood 12/09/2024 2:57 PM CDT 12/09/2024 9:37 PM CDT us Kapil Nieves MD LAB BLOOD ORDERABLES Final Re sult [facility] [address] Department of Laboratories [place], [place] [id number] * (ABNORMAL) CBC with auto differential (12/09/2024 2:57 PM CDT) WBC 11.49(H) 3.80 - 9.90 K/cumm Hgb 14.7 11.9 - 15.5 g/dL [facility] Hct 46.4(H) 35.6 - 45.5 % [facility] Plt 268 150 - 400 K/cumm [facility] MPV 10.5 9.1 - 12.3 fL [facility] RBC 4.93 3.90 - 5.20 M/cumm [facility] MCV 94.1 81.3 - 96.4 fL [facility] MCH 29.8 27.1 - 33.3 pg [facility] MCHC 31.7(L) 32.3 - 35.7 g/dL [facility] RDW CV 12.5 11.1 - 14.9 % [facility] RDW SD 43.4 35.7 - 48.1 fL [facility] NRBC abs 0.00 0.00 - 0.01 K/cumm [facility] Blood 12/09/2024 2:57 PM CDT 12/09/2024 9:37 PM CDT us Kapil Nieves MD LAB BLOOD ORDERABLES Final Re sult [facility] [address] [address] Department [place] [address] * (ABNORMAL) POCT hemoglobin A1c (09/01/2024 10:40 AM CDT) Hemoglobin A1C, POC 7.4 4.0 - 5.6 % Blood 09/01/2024 10:4 0 AM CDT us Kapil Nieves MD POINT OF CARE TEST ORDERABLES Final Result * POCT lipid panel (04/27/2024 12:23 PM PLANT CONTROL OPERATOR) Cholesterol, POC 0 mg/dL Comment:error in results per HDL, POC 0 mg/dL Triglycerides, POC 0 mg/dL LDL Cholesterol POC 0 mg/dL Chol/HDL Ratio, POC 0 Non-HDL Cholesterol, POC 0 mg/dL Cholesterol Total, POC 0 mg/dL Capillary blood 04/27/2024 1 2:23 PM PLANT CONTROL OPERATOR us Kapil Nieves MD POINT OF CARE [...] - 02/15/2023 4:12 PM CDT Performed at: [address] [place] [id number] Heater Planer Operator: Dru Ruiz PhD, Phone: [phone] us Kapil Nieves MD LAB BLOOD ORDERABLES [...] - 10/23/2022 1:09 PM CDT Performed at: [address], [place], [place] [id number] Heater Planer Operator: Dru Ruiz PhD, Phone: [phone] us Kapil Nieves MD LAB URINE ORDERABLES [...] Relevant to Health Maintenance Insurance MEDICARE [address]IL[place] [address] MEDICARE [place] [address] [facility] MEDICARE RAILROAD [facility] Address: [address] [address] [place] [address] [facility] MEDICARE [place] [facility] Address: [facility] [address] [place] [address] [facility] Care Teams Director Of Business Operations Relationship Specialty Start Date End Date Kapil Nieves MD PCP - General 09/04/16
--- OUTSIDE RECORDS SUMMARY | 2025-01-02 21:37 | XMS_ITS | Encounter Summary ---
Author Organization [facility] Address [address] [place] [address] Care Team Providers Care Clinical Support Tech Name Role Phone Kapil Nieves MD Primary Care Provider [phone] Encounter Details Date Type Department Care Team (Late Contact Info) Description 02/18/2018 Lab Requisition [facility] DermPath Lab [address] [place] [address] Gabo Burt MD [address] [address] Social History Tobacco Use Types [...] Description 02/17/2025 3:00 PM CDT Office Visit [facility] - Dermatology [address] [place] [address] Dalia Melendez MD [address] [facility] [address] [place] [address] documented as of this encounter Procedures Procedure Name Priority Date/Time Associated Diagnosis Comments DERMATOPATHOLOGY Routine 02/17/2018 12:0 0 AM CDT documented in this encounter Results * DERMATOPATHOLOGY (02/17/2018 12:00 AM CDT) Case Report Dermatopathology Report Case: [id number] Authorizing Provider: Gabo Burt MD Collected: 02/17/2018 [...] specimen consists of a shave biopsy measuring 1r1x5sp. Jar 0. 1:40 PM CDT DERMATOPATHOLOGY LABORATORY [...] characteristic determined by the Dermatopathology Laboratory at [facility]. These tests need not be, and therefore are not, approved by the [place] Food and Drug Administration. The tests are used for clinical purposes. Billing Codes Specimen Charges Stain Charges 08188 1 8 1:40 PM CDT DERMATOPATHOLOGY LABORATORY Embedded Images 1:40 PM CDT DERMATOPATHOLOGY LABORATORY Pathology/Cytolog y TISSUE SPECIMEN FROM SKIN / Unknown 02/17/2018 02/18/2018 9:01 AM CDT us Gabo Burt MD LAB - PATHOLOGY/CYTOLOGY ORD ERABLES Final Result DERMATOPATHOLOGY LABORATORY [facility] - Department of Dermatology [address] [place] [address] [address] [phone] documented in this encounter Visit Diagnoses Not on filedocumented in this encounter Care Teams Clinical Support Tech Relationship Specialty Start Date End Date Kapil Nieves MD [address] [address] PCP - General Internal Medicine 09/25/23 documented as of this encounter
--- OUTSIDE RECORDS SUMMARY | 2025-01-02 21:37 | XMS_ITS | Clinical Summary ---
Author Organization [facility] Address [address] [place] [id number] Care Team Providers Care Suit Attendant Name Role Phone None, Provider MD Primary [...] this topic Medical Devices Implanted Type Area Wirer Maintenance Device Identifier Shelf Expiration Date Model / Serial / Lot Iol [employer]rav[employer] Zcb00 - [id number] Implanted:Qty: 1 on 01/16/2021 by Zaki Roy MD at [facility] Lens Left: Eye [employer] 08/12/2023 ZCB00 / [id number] / Iol [employer]rav[employer] Zcb00 - [id number] Implanted:Qty: 1 on 02/13/2021 by Zaki Roy MD at [facility] Lens Right: Eye [employer] 04/20/2024 ZCB00 / [id number] / Insurance [place]ILRO[employer] MEDICARE Care Teams Suit Attendant Relationship Specialty Start Date End Date None, Provider, PCP - General 01/16/21
[2025-01-02 21:38] LABS: Hematocrit 42.5 % (37.0-47.0); Hemoglobin 13.4 g/dL (12.0-15.0); Immature Granulocyte Percent A 0.2 % (0-0.5); Lymphocytes Absolute Auto 1.41 K/mm3 (0.9-3.2); Mean Corpuscular HGB Conc 31.5 g/dl (32-36); Mean Corpuscular Hemoglobin 28.9 pg (26-34); Mean Corpuscular Volume 91.8 fl (80-100); Nucleated Red Blood Cells Absolute Auto 0.000 K/mm3 (0.0-0.012); Nucleated Red Blood Cells Perc 0.0 % (0.0-0.2); Platelet Count Result 241 k/mm3 (150-375); Red Blood Count 4.63 M/mm3 (4.2-5.4); White Blood Count 8.4 K/mm3 (4.5-10.0)
[2025-01-02 22:06] LABS: Alanine Aminotransferase 17 U/L (6-35); Albumin Level 3.6 g/dL (3.5-5.1); Alkaline Phosphatase 73 U/L (38-126); Anion Gap 5 mmol/L (4-12); Aspartate Amino Transferase 23 U/L (14-36); Bilirubin,Total 0.4 mg/dL (0.2-1.3); Blood Urea Nitrogen 21 mg/dL (7-17); CRP < 0.5 mg/dL (<1.0); Calcium 9.4 mg/dL (8.4-10.2); Carbon Dioxide 29 mmol/L (22-30); Chloride 100 mmol/L (98-107); Estimated CRCL calculation 36 ml/min; Estimated Glomerular Filt Rate 52; Glucose 211 mg/dL (65-110); Magnesium 2.2 mg/dL (1.6-2.3); Potassium 4.1 mmol/L (3.4-5.0); Sodium 134 mmol/L (137-145); Total Protein 6.6 g/dL (6.3-8.2)
--- NOTE | 2025-01-02 22:15 | ED.GENADULT ---
HPI - General Adult General Chief complaint: Skin/Abscess/Foreign Body Stated complaint: itching Time Seen by Provider: 01/02/25 21:10 History of Present Illness HPI narrative: Patient is a 79-year-old female who presents the emergency department this evening complaining of an itchy rash to her bilateral arms and legs. States the rash started initially 3 weeks ago but then last week she saw her primary care physician who put her on doxycycline as he was concerned that the rash was developing into cellulitis. Patient states that while she was on the doxycycline her symptoms did improve but feels as though the infection in her legs did return. Patient states that the itching still persists and she has not been taking Benadryl because it makes her too sleepy. Patient had blood work done at [facility] and had an elevated white count of 12 and was told to come to the ED for further evaluation. Related Data Home Medications ?Medication ?Instructions ?Recorded ?Confirmed ?Last Taken ?Type amlodipine 10 mg tablet 10 mg PO DAILY 06/25/19 08/15/23 09/15/19 History aspirin 81 mg tablet,delayed 81 mg PO DAILY 06/25/19 08/15/23 09/15/19 History release clopidogrel 75 mg tablet 75 mg PO DAILY 06/25/19 08/15/23 09/15/19 History losartan 100 mg tablet 100 mg PO DAILY 06/25/19 08/15/23 09/15/19 History rosuvastatin 10 mg tablet 20 mg PO DAILY 06/25/19 08/15/23 09/15/19 History sitagliptin phosphate 50 mg tablet 50 mg PO DAILY 06/25/19 08/15/23 09/15/19 History (Januvia) escitalopram oxalate 5 mg tablet 5 mg PO DAILY 09/15/19 08/15/23 09/15/19 History insulin glargine 100 unit/mL (3 30 unit subcut DAILY 08/15/23 08/15/23 Unknown History mL) subcutaneous pen (Lantus Solostar U-100 Insulin) Allergies Allergy/AdvReac Type Severity Reaction Status Date / Time metformin AdvReac Severe DIARRHEA Verified 01/02/25 22:51 Review of Systems Review of Systems: All systems are reviewed and are negative unless stated otherwise in the HPI. [facility] Past Medical History Medical History Depression with anxiety Dementia Type 2 diabetes mellitus :Hemoglobin A1c was 8.3% in January 2019. Dyslipidemia Hypertension CVA (cerebral vascular accident) : Brain MRI June 2019 showed acute infarct in the left midbrain and old infarcts involving the right thalamus, bilateral basal ganglia, and left frontal lobe muller radiata as well as unchanged moderate nonspecific cerebral white matter disease and pontine disease, which likely represents chronic small vessel ischemic disease. : Carotid Doppler ultrasounds showed < 50% stenosis bilaterally. : Echocardiogram in January 2018 showed normal left ventricular systolic function with an EF of 65-70%. There was no evidence of intracardiac shunt at the atrial level with bubble study. Surgical History Surgical History History of hysterectomy History of cholecystectomy History of cervical spinal surgery History of appendectomy Family History Family History Father Diabetes mellitus Acute myocardial infarction Cerebrovascular accident Hypertension Mother of unknown cause History of blood clots Social History Social History Social History: The patient lives in [place] with her . Her , Michael, as her surrogate decision maker and she is listed as a full code. She is a lifelong nonsmoker. No alcohol or drug abuse documented. Smoking status: Never smoker Alcohol intake: never Substance use: never Do You Feel Safe in your Home?: Yes Lack of Transportation: No Lack of Food: Never True Current Housing: I Have Housing Concerned About Future Housing: No Difficulty Paying Gas/Electric Bills: No Difficulty Paying for Meds: No Currently Unemployed: No Education: High School Diploma/GED Difficulty w/ Childcare or Family Care: No Spiritual care concerns: No Agree to blood products: Yes Exam Narrative: General: Alert, awake, afebrile, in no acute distress. HEENT: PERRL, no rhinorrhea, no post nasal drip, oropharynx clear. Neck: Trachea midline, no JVD, no lymphadenopathy. Cardiovascular: Regular rate and rhythm, no murmurs, rubs or gallops, bilateral 1+ pitting edema. Respiratory: Clear to auscultation bilaterally, no tachypnea, no wheezing, no rhonchi, no rubs, no respiratory distress. Abdomen: Soft, nontender, nondistended, no rebound, no guarding, no peritoneal signs. Musculoskeletal: No joint swelling or deformity, normal muscle tone. Skin: Mild rash/skin eruption dorsum of the bilateral forearms which appears to be healing, bilateral lower extremity seeping wounds secondary to edema with yellow fluid drainage concern for cellulitis. Psychiatric: Alert and oriented, normal behavior and judgment for situation. Neurological: Alert and oriented to person, place, and time. Follows all commands. No focal deficits, speech is clear and fluent. Course Vital Signs Vital signs: Vital Signs Temperature 97.6 F 01/02/25 20:47 Pulse Rate 98 01/02/25 20:47 Respiratory Rate 19 01/02/25 20:47 Blood Pressure 161/90 H 01/02/25 20:47 Pulse Oximetry 97 01/02/25 20:47 Oxygen Delivery Room Air 01/02/25 20:47 Temperature 97.6 F 01/02/25 20:47 Pulse Rate 98 01/02/25 20:47 Respiratory Rate 19 01/02/25 20:47 Blood Pressure 161/90 H 01/02/25 20:47 Pulse Oximetry 97 01/02/25 20:47 Oxygen Delivery Room Air 01/02/25 20:47 Medical Decision Making MDM Narrative Medical decision making narrative: The patient was evaluated by myself in the emergency department. History is obtained from patient who is an independent historian and physical exam was performed. External medical records were reviewed at this time. IV was established and pertinent tests were ordered. Patient was administered 25 mg of IV Benadryl for itching. Laboratory results obtained revealing no acute process, patient's white blood cell count today is noted to be 8.4. Differential diagnosis considerations include cellulitis, abscess, contact dermatitis, aortic area. Comorbidities impacting this visit include none. I have evaluated and discussed social determinants of health with the patient that could potentially impact subsequent diagnosis and treatment plans. On repeat assessment of the patient, reevaluation revealed that the patient is doing well and is in no acute distress. Patient symptoms have remained stable since she arrived to our emergency department. Repeat vital signs were all reviewed and noted to be stable. Differential diagnosis and treatment plan were discussed with the patient at bedside. Patient agrees with discussion and after shared medical decision making agrees with discharge. All questions were answered to the patient's satisfaction. Patient will follow up with her PCP in 3-5 days. Patient has a scheduled appointment with Dermatology but it is not for few more months and she is trying to get it moved forward. Provided with a script for clindamycin and administered her 1st dose in the emergency department. Patient was provided with strict return precautions and instructed to return to the emergency department if any new or worsening symptoms develop. The patient was discharged in stable condition. Vital Signs Vital Signs: Vital Signs Temperature 97.6 F 01/02/25 20:47 Pulse Rate 98 01/02/25 20:47 Respiratory Rate 19 01/02/25 20:47 Blood Pressure 161/90 H 01/02/25 20:47 Pulse Oximetry 97 01/02/25 20:47 Oxygen Delivery Room Air 01/02/25 20:47 Temperature 97.6 F 01/02/25 20:47 Pulse Rate 98 01/02/25 20:47 Respiratory Rate 19 01/02/25 20:47 Blood Pressure 161/90 H 01/02/25 20:47 Pulse Oximetry 97 01/02/25 20:47 Oxygen Delivery Room Air 01/02/25 20:47 Lab Data 01/02/25 21:33 01/02/25 21:33 Labs: Lab Results 01/02/25 Range/Units 21:33 WBC 8.4 (4.5-10.0) K/mm3 RBC 4.63 (4.2-5.4) M/mm3 Hgb 13.4 (12.0-15.0) g/dL Hct 42.5 (37.0-47.0) % MCV 91.8 (80-100) fl MCH 28.9 (26-34) pg MCHC 31.5 L (32-36) g/dl RDW 12.4 (11.5-14.5) % Plt Count 241 (150-375) k/mm3 MPV 10.0 (7.4-10.4) fl Immature Gran % (Auto) 0.2 (0-0.5) % Neut % (Auto) 63.0 (45.5-73.1) % Lymph % (Auto) 16.8 L (18.3-44.2) % [place] % (Auto) 7.9 (2.6-8.5) % Eos % (Auto) 11.6 H (0-4.4) % Baso % (Auto) 0.5 (0.2-1.2) % Lymph # (Auto) 1.41 (0.9-3.2) K/mm3 [place] # (Auto) 0.7 H (0.1-0.6) K/mm3 Eos # (Auto) 1.0 H (0-0.3) K/mm3 Baso # (Auto) 0.0 (0.0-0.1) K/mm3 Abs Immat Gran (auto) 0.02 (0.00-0.031) K/mm3 Absolute Neuts (auto) 5.3 (1.3-6.7) K/mm3 Absolute Nucleated RBC 0.000 (0.0-0.012) K/mm3 Nucleated RBC % 0.0 (0.0-0.2) % ESR 36 H (0-20) mm/hr Sodium 134 L (137-145) mmol/L Potassium 4.1 (3.4-5.0) mmol/L Chloride 100 (98-107) mmol/L Carbon Dioxide 29 (22-30) mmol/L Anion Gap 5 (4-12) mmol/L BUN 21 H (7-17) mg/dL Creatinine 1.02 H (0.7-1.0) mg/dL Estim Creat Clear Calc 36 ml/min Estimated GFR 52 L (59 - ) Glucose 211 H (65-110) mg/dL Lactic Acid 1.5 (0.7-2.0) mmol/L Calcium 9.4 (8.4-10.2) mg/dL Magnesium 2.2 (1.6-2.3) mg/dL Total Bilirubin 0.4 (0.2-1.3) mg/dL AST 23 (14-36) U/L ALT 17 (6-35) U/L Alkaline Phosphatase 73 (38-126) U/L C-Reactive Protein < 0.5 (<1.0) mg/dL Total Protein 6.6 (6.3-8.2) g/dL Albumin 3.6 (3.5-5.1) g/dL Discharge Plan Discharge Clinical Impression: Rash/skin eruption Patient Disposition: Home Condition: Improved Instructions: Antibiotic Form, Cellulitis (ED) Additional Instructions: Please follow-up with your family doctor within the next 3-5 days. You will need to also follow-up with route service manager for further evaluation of your rash. Take the prescribed antibiotic as instructed and return to the emergency department if any new or worsening symptoms develop. You need to keep your legs elevated while sitting and wear compression socks while walking to help with your lower extremity edema and prevent cellulitis. Patient Language: Maori Prescriptions: New clindamycin HCl [Cleocin HCl] 150 mg capsule 450 mg PO Q8H 7 Days Qty: 63 0RF No Action insulin glargine [Lantus Solostar U-100 Insulin] 100 unit/mL (3 mL) insulin pen 30 unit subcut DAILY clopidogrel 75 mg Tablet 75 mg PO DAILY aspirin 81 mg Tablet,Delayed Release (Dr/Ec) 81 mg PO DAILY amlodipine 10 mg Tablet 10 mg PO DAILY losartan 100 mg Tablet 100 mg PO DAILY rosuvastatin 10 mg Tablet 20 mg PO DAILY Januvia 50 mg Tablet 50 mg PO DAILY escitalopram oxalate 5 mg tablet 5 mg PO DAILY glipizide 5 mg Tablet 2.5 mg PO DAILY@0630 Qty: 30 0RF Follow-up/Referrals: Lizbeth,Kapil Huggins MD [Primary Care Provider] - 3 Days Time of Disposition: 22:22
[2025-01-02] MEDS: CLINDAMYCIN HCL 150 MG CAP 450 MG PO (22:50)
== END 2025-01-02 23:15 | disposition home or self-care (01) ==
PROVIDERS: Emergency Provider Emergency Medicine; PCP Internal Medicine
DX: R21 Rash and other nonspecific skin eruption (principal); F03.90 Unspecified dementia, unspecified severity, without behavioral disturbance, psychotic disturbance, mood disturbance, and anxiety; E11.9 Type 2 diabetes mellitus without complications; E78.5 Hyperlipidemia, unspecified; F41.8 Other specified anxiety disorders; Z86.73 Personal history of transient ischemic attack (TIA), and cerebral infarction without residual deficits; Z90.710 Acquired absence of both cervix and uterus; Z90.49 Acquired absence of other specified parts of digestive tract; Z79.4 Long term (current) use of insulin; Z79.84 Long term (current) use of oral hypoglycemic drugs; Z79.82 Long term (current) use of aspirin; Z79.02 Long term (current) use of antithrombotics/antiplatelets
CPT/HCPCS: 36415; 80053; 83605; 83735; 85025; 85652; 86140; 96374; 99284; J1200

== ENCOUNTER 2025-04-21 03:53 | Emergency (ER) | payer MEDICARE, OTHER, SELFPAY ==
[2025-04-21] VITALS (8 sets, daily range): BP systolic 150–161; BP diastolic 80–102; PULSE 78–118; RESP 19–25; TEMP 36.8; O2SAT 95–100
--- NOTE | ~2025-04-21 | XR_ITS ---
Examination: XR forearm RT 2V Clinical History: fall Comparison: None Technique: 2 views right forearm Findings/impression: 1. Nondisplaced fracture distal radius. 2. Angulated fracture distal ulna. 3. Dorsally dislocated carpus. Reviewed, dictated and finalized at location R.
--- NOTE | ~2025-04-21 | XR_ITS ---
Examination: XR chest 1V portable Clinical History: concern for CVA Comparison: 11/29/2022 Technique: Portable AP Findings: Loop recorder. Heart size normal. Lungs clear. No acute bony abnormality. IMPRESSION: 1. No acute cardiopulmonary findings given portable technique. Reviewed, dictated and finalized at location R.
--- NOTE | ~2025-04-21 | CT_ITS ---
EXAMINATION: CT brain wo dawson, 04/21/2025 3:49 CDT HISTORY: R sided weakness/droop COMPARISON: No comparisons available. Technique: Axial images obtained of the brain without contrast. One or more of the following dose reduction techniques were used: automated exposure control, adjustment of the mA and/or kV according to patient size, use of iterative reconstruction technique. Findings: There is a right-sided acute subdural hematoma abutting the frontal lobe measuring 11 mm maximally with midline shift measuring 3 mm. There are remote bilateral basal ganglia lacunar infarcts. Mastoid air cells unremarkable. Sinuses and orbits unremarkable. No acute fracture. Anterior right-sided subcutaneous soft tissue swelling with subcutaneous hemorrhage noted. Impression: Acute focus of right-sided subdural hemorrhage with mass effect and midline shift. Findings agree with the preliminary report Reviewed, dictated and finalized at location P. Impression: Acute focus of right-sided subdural hemorrhage with mass effect and midline carson ft. Findings agree with the preliminary report
--- NOTE | 2025-04-21 03:54 | ECG_ITS ---
Test Date: 2025-04-21 04:07:27 Measurements Intervals [place] Rate: 104 P: 183 MA: 131 QRS: 16 QRSD: 93 T: 80 QT: 356 QTc: 469 Interpretive Statements SINUS TACHYCARDIA NONSPECIFIC ST & T-WAVE ABNORMALITY- HIGH LATERAL LEADS BORDERLINE ECG No previous ECG available for comparison Electronically Signed On 04-21-2025 05:58:02 CDT by Andrea Madsen D.O.
--- NOTE | 2025-04-21 03:59 | ED.NEUROSD ---
HPI - Neuro Symptoms/Deficit General Chief Complaint: Suspected CVA Stated Complaint: Fall/R Droop and R Weakness Source: EMS Mode of arrival: EMS Limitations: altered mental status History of Present Illness HPI Narrative: This is a 79-year-old female with history of diabetes, CVAs, hypertension, dyslipidemia who presents to the ED via EMS for fall and altered mental status and stroke alert. Per EMS, patient reportedly got up to go to the bathroom and had a fall striking her right head and right arm. woke up and called EMS. On arrival, she was A/O x1 which was new for her. She is on Plavix. History is otherwise limited at this time due to her altered mental status. Related Data Home Medications ?Medication ?Instructions ?Recorded ?Confirmed ?Last Taken ?Type amlodipine 10 mg tablet 10 mg PO DAILY 06/25/19 08/15/23 09/15/19 History aspirin 81 mg tablet,delayed 81 mg PO DAILY 06/25/19 08/15/23 09/15/19 History release clopidogrel 75 mg tablet 75 mg PO DAILY 06/25/19 08/15/23 09/15/19 History losartan 100 mg tablet 100 mg PO DAILY 06/25/19 08/15/23 09/15/19 History rosuvastatin 10 mg tablet 20 mg PO DAILY 06/25/19 08/15/23 09/15/19 History sitagliptin phosphate 50 mg tablet 50 mg PO DAILY 06/25/19 08/15/23 09/15/19 History (Januvia) escitalopram oxalate 5 mg tablet 5 mg PO DAILY 09/15/19 08/15/23 09/15/19 History insulin glargine 100 unit/mL (3 30 unit subcut DAILY 08/15/23 08/15/23 Unknown History mL) subcutaneous pen (Lantus Solostar U-100 Insulin) Allergies Allergy/AdvReac Type Severity Reaction Status Date / Time metformin AdvReac Severe DIARRHEA Verified 04/21/25 04:49 Review of Systems Review of Systems: ROS unobtainable: Yes unobtainable due to medical condition PMFSH Past Medical History Medical History Depression with anxiety Dementia Type 2 diabetes mellitus :Hemoglobin A1c was 8.3% in January 2019. Dyslipidemia Hypertension CVA (cerebral vascular accident) : Brain MRI June 2019 showed acute infarct in the left midbrain and old infarcts involving the right thalamus, bilateral basal ganglia, and left frontal lobe muller radiata as well as unchanged moderate nonspecific cerebral white matter disease and pontine disease, which likely represents chronic small vessel ischemic disease. : Carotid Doppler ultrasounds showed < 50% stenosis bilaterally. : Echocardiogram in January 2018 showed normal left ventricular systolic function with an EF of 65-70%. There was no evidence of intracardiac shunt at the atrial level with bubble study. Surgical History Surgical History History of hysterectomy History of cholecystectomy History of cervical spinal surgery History of appendectomy Family History Family History Father Diabetes mellitus Acute myocardial infarction Cerebrovascular accident Hypertension Mother of unknown cause History of blood clots Social History Social History Social History: The patient lives in [place] with her . Her , Michael, as her surrogate decision maker and she is listed as a full code. She is a lifelong nonsmoker. No alcohol or drug abuse documented. Smoking status: Never smoker Alcohol intake: never Substance use: never Do You Feel Safe in your Home?: Yes Lack of Transportation: No Lack of Food: Never True Current Housing: I Have Housing Concerned About Future Housing: No Difficulty Paying Gas/Electric Bills: No Difficulty Paying for Meds: No Currently Unemployed: No Education: High School Diploma/GED Difficulty w/ Childcare or Family Care: No Spiritual care concerns: No Agree to blood products: Yes Exam Narrative: APPEARANCE: No acute distress, nontoxic, in cot EYES: Left pupil 4 mm right pupil 2 mm, both reactive HEENT: Large hematoma to the right forehead RESPIRATORY: No respiratory distress Clear to auscultation bilaterally with no rhonchi wheezing or rales. CARDIOVASCULAR: Regular rate and rhythm without murmurs rubs or gallops. ABDOMINAL: Soft, nontender, nondistended, no rebound or guarding MUSCULOSKELETAl: Right forearm an immobilizer, deformity noted to the wrist, neurovascularly intact distally. NEURO: Awake and alert. Limited neuro exam due to hard of hearing, no focal deficits noted. SKIN:: Warm, dry Course Vital Signs Vital signs: Vital Signs Temperature 98.2 F 04/21/25 03:50 Pulse Rate 104 H 04/21/25 03:50 Respiratory Rate 22 H 04/21/25 03:50 Blood Pressure 160/87 H 04/21/25 03:50 Pulse Oximetry 97 04/21/25 03:50 Oxygen Delivery Room Air 04/21/25 03:50 Temperature 98.2 F 04/21/25 03:50 Pulse Rate 104 H 04/21/25 04:32 Respiratory Rate 19 04/21/25 04:32 Blood Pressure 150/80 H 04/21/25 04:32 Pulse Oximetry 95 04/21/25 04:32 Oxygen Delivery Room Air 04/21/25 03:50 MDM - Neuro Symptoms/Deficit MDM Narrative Medical decision making narrative: 79-year-old female presenting for fall and concerns for stroke. Patient is on Plavix and aspirin, no other anticoagulation. For our initial evaluation, patient was in no acute distress, afebrile, hemodynamically stable. Attempted stroke. Eval but was unable to as patient is extremely hard of hearing. There is obvious trauma to her head with a large hematoma to her right scalp so she was taken immediately to the CT scanner. Wet read by myself revealed a subdural hematoma on the right with potentially a small amount of midline shift. Given subdural hematoma, patient will require transfer for trauma surgery and neurosurgery evaluation. Current blood pressure is 160/87. I discussed the case with Dr. Zuniga, [facility], will accept the patient in ED to ED transfer. X-ray right wrist was obtained and did show a distal radial ulnar fracture. CRITICAL CARE Indication: Trauma Time type: intermittent I provided a total of 55 minutes of critical care excluding separately billable procedures. This includes time w/ EMS, initial bedside evaluation, reviewing old records, review of testing done while under my care, discussion w/ the family, nurses, peoplesoft hcm consultant and guiding the patient?s care while in the emergency department. Approximate time distribution: 15 minutes ? Initial evaluation, d/w involved parties, attempting to gather old records. 10 minutes ? Documenting medical record 10 minutes ? Review of results (EKGs, labs, imaging) 10 minutes ? Serial repeat bedside evaluation 10 minutes ? Discussing case with transfer center and providers Differential Diagnosis Differential diagnosis: Likely subarachnoid hemorrhage, cerebrovascular accident, transient cerebral ischemia and other (Contusion, fracture) Medical Records Attestation: I reviewed the patient's medical records. Lab Data Attestation: I reviewed the patient's lab results. 04/21/25 04:11 04/21/25 04:11 Labs: Lab Results 04/21/25 Range/Units 04:11 WBC 11.5 H (4.5-10.0) K/mm3 RBC 4.71 (4.2-5.4) M/mm3 Hgb 13.7 (12.0-15.0) g/dL Hct 42.5 (37.0-47.0) % MCV 90.2 (80-100) fl MCH 29.1 (26-34) pg MCHC 32.2 (32-36) g/dl RDW 13.3 (11.5-14.5) % Plt Count 252 (150-375) k/mm3 MPV 9.6 (7.4-10.4) fl Immature Gran % (Auto) 0.5 (0-0.5) % Neut % (Auto) 68.0 (45.5-73.1) % Lymph % (Auto) 19.9 (18.3-44.2) % [place] % (Auto) 8.3 (2.6-8.5) % Eos % (Auto) 2.9 (0-4.4) % Baso % (Auto) 0.4 (0.2-1.2) % Lymph # (Auto) 2.29 (0.9-3.2) K/mm3 [place] # (Auto) 1.0 H (0.1-0.6) K/mm3 Eos # (Auto) 0.3 (0-0.3) K/mm3 Baso # (Auto) 0.1 (0.0-0.1) K/mm3 Abs Immat Gran (auto) 0.06 H (0.00-0.031) K/mm3 Absolute Neuts (auto) 7.8 H (1.3-6.7) K/mm3 Absolute Nucleated RBC 0.000 (0.0-0.012) K/mm3 Nucleated RBC % 0.0 (0.0-0.2) % PT 12.5 (11.1-14.7) Seconds INR 0.9 APTT 20.8 L (22.3-36.8) Seconds Sodium 137 (137-145) mmol/L Potassium 3.5 (3.4-5.0) mmol/L Chloride 103 (98-107) mmol/L Carbon Dioxide 26 (22-30) mmol/L Anion Gap 8 (4-12) mmol/L BUN 14 D (7-17) mg/dL Creatinine 0.78 (0.7-1.0) mg/dL Estim Creat Clear Calc Not Reportable Estimated GFR > 60 (59 - ) Glucose 101 (65-110) mg/dL Calcium 9.3 (8.4-10.2) mg/dL Total Bilirubin 0.7 (0.2-1.3) mg/dL AST 27 (14-36) U/L ALT 20 (6-35) U/L Alkaline Phosphatase 80 (38-126) U/L Troponin I 0.013 (0.000-0.034) ng/mL Total Protein 7.2 (6.3-8.2) g/dL Albumin 4.1 (3.5-5.1) g/dL Imaging Data Attestation: I personally reviewed and interpreted this imaging study as follows: My impression: CT head: Right subdural hematoma with a small amount of midline shift X-ray wrist right: dorsal drew fracture Radiologist's impression: CT head: Discharge Plan Discharge Clinical Impression: Acute subdural hematoma Fall Qualifiers: Encounter type: initial encounter Qualified Code(s): W19.XXXA - Unspecified fall, initial encounter Facial hematoma Qualifiers: Encounter type: initial encounter Qualified Code(s): S00.83XA - Contusion of other part of head, initial encounter Fracture of wrist Qualifiers: Encounter type: initial encounter Fracture type: closed Laterality: right Qualified Code(s): S62.101A - Fracture of unspecified carpal bone, right wrist, initial encounter for closed fracture Patient Disposition: Acute Care Hospital Condition: Serious Patient Language: Vietnamese Prescriptions: No Action insulin glargine [Lantus Solostar U-100 Insulin] 100 unit/mL (3 mL) insulin pen 30 unit subcut DAILY clopidogrel 75 mg Tablet 75 mg PO DAILY aspirin 81 mg Tablet,Delayed Release (Dr/Ec) 81 mg PO DAILY amlodipine 10 mg Tablet 10 mg PO DAILY losartan 100 mg Tablet 100 mg PO DAILY rosuvastatin 10 mg Tablet 20 mg PO DAILY Januvia 50 mg Tablet 50 mg PO DAILY escitalopram oxalate 5 mg tablet 5 mg PO DAILY clindamycin HCl [Cleocin HCl] 150 mg capsule 450 mg PO Q8H 7 Days Qty: 63 0RF glipizide 5 mg Tablet 2.5 mg PO DAILY@0630 Qty: 30 0RF Follow-up/Referrals: Lizbeth,Kapil Huggins MD [Primary Care Provider]
[2025-04-21] MEDS: ONDANSETRON INJ 4 MG/2 ML VIAL IV PUSH (04:13)
[2025-04-21 04:20] LABS: Hematocrit 42.5 % (37.0-47.0); Hemoglobin 13.7 g/dL (12.0-15.0); Immature Granulocyte Percent A 0.5 % (0-0.5); Lymphocytes Absolute Auto 2.29 K/mm3 (0.9-3.2); Mean Corpuscular HGB Conc 32.2 g/dl (32-36); Mean Corpuscular Hemoglobin 29.1 pg (26-34); Mean Corpuscular Volume 90.2 fl (80-100); Nucleated Red Blood Cells Absolute Auto 0.000 K/mm3 (0.0-0.012); Nucleated Red Blood Cells Perc 0.0 % (0.0-0.2); Platelet Count Result 252 k/mm3 (150-375); Red Blood Count 4.71 M/mm3 (4.2-5.4); White Blood Count 11.5 K/mm3 (4.5-10.0)
[2025-04-21 04:30] LABS: INR 0.9; Prothrombin Time 12.5 Seconds (11.1-14.7)
[2025-04-21 04:31] LABS: Partial Thromboplastin Time 20.8 Seconds (22.3-36.8)
[2025-04-21 04:35] LABS: Alanine Aminotransferase 20 U/L (6-35); Albumin Level 4.1 g/dL (3.5-5.1); Alkaline Phosphatase 80 U/L (38-126); Anion Gap 8 mmol/L (4-12); Aspartate Amino Transferase 27 U/L (14-36); Bilirubin,Total 0.7 mg/dL (0.2-1.3); Blood Urea Nitrogen 14 mg/dL (7-17); Calcium 9.3 mg/dL (8.4-10.2); Carbon Dioxide 26 mmol/L (22-30); Chloride 103 mmol/L (98-107); Estimated Glomerular Filt Rate > 60; Glucose 101 mg/dL (65-110); Potassium 3.5 mmol/L (3.4-5.0); Sodium 137 mmol/L (137-145); Total Protein 7.2 g/dL (6.3-8.2)
[2025-04-21 04:42] LABS: Troponin I 0.013 ng/mL (0.000-0.034)
[2025-04-21] MEDS: ONDANSETRON INJ 4 MG/2 ML VIAL (05:27)
== END 2025-04-21 05:31 | disposition short-term general hospital (02) ==
PROVIDERS: Emergency Provider Student in an Organized Health Care Education/Training Program; PCP Internal Medicine
DX: S06.5XAA Traumatic subdural hemorrhage with loss of consciousness status unknown, initial encounter (principal); S00.83XA Contusion of other part of head, initial encounter; S52.501A Unspecified fracture of the lower end of right radius, initial encounter for closed fracture; S52.601A Unspecified fracture of lower end of right ulna, initial encounter for closed fracture; I10 Essential (primary) hypertension; E78.5 Hyperlipidemia, unspecified; E11.9 Type 2 diabetes mellitus without complications; F03.90 Unspecified dementia, unspecified severity, without behavioral disturbance, psychotic disturbance, mood disturbance, and anxiety; F41.8 Other specified anxiety disorders; Z86.73 Personal history of transient ischemic attack (TIA), and cerebral infarction without residual deficits; Z90.49 Acquired absence of other specified parts of digestive tract; Z90.710 Acquired absence of both cervix and uterus; R94.31 Abnormal electrocardiogram [ECG] [EKG]; R00.0 Tachycardia, unspecified; Z79.4 Long term (current) use of insulin; Z79.899 Other long term (current) drug therapy; Z79.02 Long term (current) use of antithrombotics/antiplatelets; W18.30XA Fall on same level, unspecified, initial encounter
CPT/HCPCS: 36415; 70450; 71045; 73090; 80053; 82948; 84484; 85025; 85610; 85730; 93005; 96374; 99285; J2405